=== PATIENT | female | born 1960 | race Caucasian/White ===

== ENCOUNTER 2018-04-05 21:36 | Emergency (ER) | payer MEDICAID ==
[~2018-04-05] VITALS: Ht 177.8 cm; Wt 81.6 kg
[2018-04-06 02:04] VITALS: BP 145/98
[2018-04-06] MEDS ORDERED: SODIUM CHLORIDE 0.9% 1,000 ML IVB ONE (02:32)
[2018-04-06] MEDS ORDERED: MORPHINE SULFATE 4 MG/ML SYR/VIAL IV ONE (02:45)
[2018-04-06] MEDS ORDERED: ONDANSETRON HCL 4 MG/2 ML VIAL IV ONE (02:45)
[2018-04-06] MEDS ORDERED: ONDANSETRON HCL 4 MG/2 ML VIAL IM ONE (02:45)
[2018-04-06] MEDS ORDERED: MORPHINE SULFATE 4 MG/ML SYR/VIAL IM ONE (02:45)
[2018-04-06] MEDS ORDERED: cefTRIAXone 1GM/50ML D5W 50 ML IV ONE (02:45)
[2018-04-06] MEDS ORDERED: cefTRIAXone W LIDOCAINE 1 GM IM IM ONE (02:45)
[2018-04-06] MEDS ORDERED: cefTRIAXone SOD 1,000 MG VL ONE (02:57)
== END 2018-04-06 03:34 | disposition home or self-care (01) ==
LOC: ER 21:36
DX: K02.9 Dental caries, unspecified (principal); J32.0 Chronic maxillary sinusitis; L03.211 Cellulitis of face
CPT/HCPCS: 70486; 96372; 99284; J0696; J2270; J2405

== ENCOUNTER 2018-08-01 13:09 | Emergency (ER) | payer MEDICAID ==
[~2018-08-01] VITALS: Ht 177.8 cm; Wt 89.8 kg
[2018-08-01 13:34] VITALS: BP 104/60
[2018-08-01] MEDS ORDERED: TETANUS-DIPTH-ACEL PERTUSSIS 0.5ML SYRG IM ONE (16:45)
[2018-08-01] MEDS ORDERED: KETOROLAC TROMETH 60MG/2ML VIAL IM ONE (17:00)
[2018-08-01] MEDS ORDERED: cefTRIAXone SOD 1,000 MG VL IM ONE (17:00)
== END 2018-08-01 18:33 | disposition home or self-care (01) ==
LOC: ER 13:09
DX: L03.114 Cellulitis of left upper limb (principal); S61.432D Puncture wound without foreign body of left hand, subsequent encounter
CPT/HCPCS: 73130; 90471; 90715; 96372; 99283; J0696; J1885

== ENCOUNTER 2019-04-18 17:43 | Emergency (ER) | payer MEDICAID ==
[~2019-04-18] VITALS: Ht 177.8 cm; Wt 81.6 kg
[2019-04-18 18:02] VITALS: BP 112/68
[2019-04-18 18:40] LABS: Urine Bacteria NONE SEEN /hpf (None Seen); Urine Blood Negative /uL (Negative); Urine Mucus FEW (None Seen); Urine Specific Gravity 1.022 (1.001-1.035); Urine WBC 2 /hpf (0 - 5)
== END 2019-04-18 22:10 | disposition left against medical advice (07) ==
LOC: ER 17:48
DX: M54.9 Dorsalgia, unspecified (principal); M54.2 Cervicalgia; Z53.21 Procedure and treatment not carried out due to patient leaving prior to being seen by health care provider
CPT/HCPCS: 81001

== ENCOUNTER 2022-11-16 08:37 | Inpatient (IN) | payer MEDICAID ==
[2022-11-16] VITALS (8 sets, daily range): BP systolic 98–139; BP diastolic 62–86
[~2022-11-16] VITALS: Ht 177.8 cm; Wt 94.8 kg
[~2022-11-16 08:37] MED LIST: METH-1181 PO
[2022-11-16] MEDS ORDERED: CELECOXIB 100 MG CAP PO ONE (08:45)
[2022-11-16] MEDS ORDERED: PREGABALIN CAPSULE 75 MG CAP PO ONE (08:45)
[2022-11-16] MEDS ORDERED: ACETAMINOPHEN IV 1000 MG/100ML (10MG/ML) IV ONE (08:45)
[2022-11-16] MEDS ORDERED: ceFAZolin 1GM/50ML 100 ML IV ONE (08:53)
[2022-11-16] MEDS ORDERED: TRANEXAMIC ACID 20 ML ONE (09:58)
[2022-11-16] MEDS ORDERED: BUPIVACAINE W/ EPINEPH 0.25% INJ 50ML MDV ONE (09:59)
[2022-11-16] MEDS ORDERED: VANCOMYCIN HCL 1000 MG VL ONE (09:59)
[2022-11-16] MEDS ORDERED: MORPHINE SULF PF 5 MG/10 ML VIAL ONE ×2 (10:40→10:57)
[2022-11-16] MEDS ORDERED: fentaNYL CITRATE 100 MCG/2 ML VL ONE (10:40)
[2022-11-16] MEDS ORDERED: MIDAZOLAM HCL 2MG/2ML 2ml VIAL (1mg/ml) ONE (10:41)
[2022-11-16] MEDS ORDERED: PROPOFOL 10 MG/ML 20 ML IV ONE (10:41)
[2022-11-16] MEDS ORDERED: TETRACAINE 1% INJ 2 ML VIAL IJ ONE (10:55)
[2022-11-16] MEDS ORDERED: KETOROLAC TROMETH 30 MG/ML 1ML VIAL ONE (10:57)
[2022-11-16] MEDS ORDERED: PHENYLEPHRINE HCL 10 MG/ML VL IV ONE (12:26)
[2022-11-16] MEDS ORDERED: DexAMETHasone SOD PHOS 10MG/1ML VIAL INJ IV ONE (12:26)
[2022-11-16] MEDS ORDERED: HYDROmorphone HCL 2 MG/ML VL/or syr IV PRN ×3 (14:00→15:15)
[2022-11-16] MEDS ORDERED: NALOXONE HCL 0.4 MG/ML VIAL IV PRN (14:00)
[2022-11-16] MEDS ORDERED: ONDANSETRON HCL 4 MG/2 ML VIAL IV PRN ×2 (14:00→14:15)
[2022-11-16] MEDS ORDERED: MIDAZOLAM HCL 2MG/2ML 2ml VIAL (1mg/ml) IV PRN (14:00)
[2022-11-16] MEDS ORDERED: ePHEDrine SULFATE 50 MG/ML AMP IV PRN (14:00)
[2022-11-16] MEDS ORDERED: diphenhdrAMINE HCL 50 MG/1 ML VL IV PRN (14:00)
[2022-11-16] MEDS ORDERED: LABETALOL HCL 5 MG/ML 4ML SYRINGE IV PRN (14:00)
[2022-11-16] MEDS ORDERED: ceFAZolin 1GM/50ML 50 ML IV SCH (14:15)
[2022-11-16] MEDS: LACTATED RINGER'S 1,000 ML IV SCH (14:15)
[2022-11-16] MEDS ORDERED: ONDANSETRON HCL 4 MG/2 ML VIAL ONE (16:20)
[2022-11-16] MEDS ORDERED: DICL5GEL TOP (16:22)
[2022-11-16] MEDS ORDERED: LIDO1.8P TOP (16:22)
[2022-11-16] MEDS ORDERED: DOCU-265 PO (16:22)
[2022-11-16] MEDS ORDERED: ACET650T4 PO (16:22)
[2022-11-16] MEDS ORDERED: ONDANSETRON HCL 4 MG/2 ML VIAL IV ONE (16:30)
[2022-11-16] MEDS: ceFAZolin 1GM/50ML 50 ML IV SCH ×2 (17:15→22:44)
[2022-11-16] MEDS ORDERED: PROMETHAZINE HCL 25 MG/ML 1ML IV ONE (19:00)
[2022-11-16] MEDS: DOCUSATE SOD 100 MG CAP PO SCH (22:21)
[2022-11-17] VITALS (23 sets, daily range): BP systolic 90–149; BP diastolic 37–74
[2022-11-17] MEDS: LACTATED RINGER'S 1,000 ML IV SCH ×3 (00:15→23:40)
[2022-11-17] MEDS: ceFAZolin 1GM/50ML 50 ML IV SCH (05:03)
[2022-11-17] MEDS: HYDROcodone-ACET 5/325MG TAB PO PRN (10:05)
[2022-11-17] MEDS: DOCUSATE SOD 100 MG CAP PO SCH ×2 (10:05→21:31)
[2022-11-17] MEDS: ENOXAPARIN SOD 40 MG/0.4 ML SYRINGE SC SCH (10:06)
[2022-11-17] MEDS ORDERED: LACTATED RINGER'S 250 ML IV ONE ×2 (12:00→12:30)
[2022-11-17] MEDS ORDERED: LACTATED RINGER'S 1,000 ML IV ONE ×2 (12:30→12:45)
[2022-11-17 13:20] LABS: Basophils # (auto) 0 10 ^3/uL (0-0.2); Basophils % (auto) 0.3 % (0.0-2.0); Eosinophils # (auto) 0 10 ^3/uL (0-0.8); Hemoglobin 9.9 g/dL (12.2-16.2); Lymphocytes # (auto) 0.2 10 ^3/uL (0.4-5.4); Lymphocytes % (auto) 6.8 % (10.0-50.0); Mean Corpuscular Hemoglobin 29.7 pg (28.0-32.0); Mean Corpuscular Hgb Conc. 34.3 g/dL (32.0-36.0); Mean Corpuscular Volume 86.5 fL (80.0-100.0); Monocytes # (auto) 0.1 10 ^3/uL (0-1.3); Monocytes % (auto) 2.6 % (0.0-12.0); Neutrophils # (auto) 3.3 10 ^3/uL (1.6-8.6); Neutrophils % (auto) 90.3 % (37.0-80.0); Nucleated Red Blood Cells % 0.2 %; Red Blood Cells 3.35 10^6/uL (4.0-5.20); Red Cell Distribution Width 13.9 % (11.8-14.3); White Blood Cell 3.7 10^3/uL (4.4-10.8)
[2022-11-17 13:37] LABS: Albumin 2.2 g/dL (3.4-5.0); Calcium 7.4 mg/dL (8.5-10.1); Potassium 3.9 mmol/L (3.5-5.1)
[2022-11-17 13:40] LABS: BUN/Creatinine Ratio 13.9 (10.0-20.0); Bilirubin, Total 0.3 mg/dL (0.2-1.0); Total Protein 4.5 g/dL (6.4-8.2)
[2022-11-17] MEDS ORDERED: ACETAMINOPHEN 325 MG TAB PO ONE (17:30)
[2022-11-18] MEDS: HYDROcodone-ACET 5/325MG TAB PO PRN ×3 (00:32→10:54)
[2022-11-18 05:20] VITALS: BP 124/66
[2022-11-18] MEDS: LACTATED RINGER'S 1,000 ML IV SCH (06:15)
[2022-11-18 06:19] LABS: Calcium 7.6 mg/dL (8.5-10.1); Potassium 3.8 mmol/L (3.5-5.1)
[2022-11-18 06:21] LABS: BUN/Creatinine Ratio 21.3 (10.0-20.0)
[2022-11-18 06:23] LABS: Bilirubin, Total 0.4 mg/dL (0.2-1.0); Total Protein 4.8 g/dL (6.4-8.2)
[2022-11-18 06:38] LABS: Hematocrit 30.3 % (36.0-46.0); Hemoglobin 10.9 g/dL (12.2-16.2); Mean Corpuscular Hemoglobin 31.1 pg (28.0-32.0); Mean Corpuscular Volume 86.5 fL (80.0-100.0); Red Blood Cells 3.51 10^6/uL (4.0-5.20); Red Cell Distribution Width 13.7 % (11.8-14.3)
[2022-11-18 07:05] LABS: Basophils % (manual) 0 (0.0-2.0); Blast Cells 0; Eosinophils % (manual) 0 (0-7); Metamyelocytes % 0; Myelocytes % 0; Promyelocytes % 0; Reactive Lymphocytes 0
[2022-11-18 08:55] LABS: Band Neutrophils % (manual) 4; Lymphocytes % (manual) 12 (10.0-50.0); Monocytes % (manual) 7 (0-12)
[2022-11-18 09:00] VITALS: BP 115/64
[2022-11-18] MEDS ORDERED: FERROUS SULFATE 325mg EC TAB PO ONE (10:15)
[2022-11-18] MEDS ORDERED: MULTIPLE VITAMIN TAB PO SCH (10:45)
[2022-11-18] MEDS: ENOXAPARIN SOD 40 MG/0.4 ML SYRINGE SC SCH (10:54)
[2022-11-18] MEDS: DOCUSATE SOD 100 MG CAP PO SCH (10:55)
[2022-11-18 12:45] VITALS: BP 111/58
[2022-11-18] MEDS ORDERED: FERROUS SULFATE 325mg EC TAB PO SCH (18:00)
[2022-11-19] MEDS ORDERED: MULTIPLE VITAMIN TAB PO SCH (10:00)
== END 2022-11-18 14:00 | disposition home health service (06) | DRG 324 ==
LOC: SUR 08:37 → TELE 15:06 → TELE-WESTW 16:36
PROVIDERS: ADMIT Orthopaedic Surgery Adult Reconstructive Orthopaedic Surgery; ATTEND Internal Medicine
PROC: BQ11ZZZ Fluoroscopy of Left Hip (ICD-10-PCS; 2022-11-16)
PROC: 0SRB02Z Replacement of Left Hip Joint with Metal on Polyethylene Synthetic Substitute, Open Approach (ICD-10-PCS; principal; 2022-11-16 11:27)
DX: M16.12 Unilateral primary osteoarthritis, left hip (principal); E66.9 Obesity, unspecified; Z72.0 Tobacco use; Z68.30 Body mass index [BMI] 30.0-30.9, adult
CPT/HCPCS: 36415; 72170; 73501; 76000; 80053; 85007; 85014; 85018; 85025; 85027; 86850; 86900; 86901; 97110; 97116; 97163; 97530; G0378; J0131; J0690; J1100; J1885; J2250; J2405; J2704

== ENCOUNTER 2023-02-25 21:09 | Emergency (ER) | payer MEDICAID ==
[~2023-02-25] VITALS: Ht 177.8 cm; Wt 80.0 kg
[~2023-02-25 21:09] MED LIST changes: +ACET650T4 PO; +DICL5GEL TOP; +DOCU-265 PO; +LIDO1.8P TOP; -METH-1181 PO
[2023-02-25 21:40] VITALS: PULSE 82; RESP 16; O2SAT 92
[2023-02-25] MEDS ORDERED: MORPHINE SULFATE INJ 2 MG/ml SYRG IV ONE (22:00)
[2023-02-25] MEDS ORDERED: ONDANSETRON HCL 4 MG/2 ML VIAL IV ONE (22:00)
[2023-02-25 22:12] LABS: Basophils # (auto) 0.1 10 ^3/uL (0-0.2); Basophils % (auto) 0.5 % (0.0-2.0); Eosinophils # (auto) 0.1 10 ^3/uL (0-0.8); Eosinophils % (auto) 0.6 % (0.0-7.0); Hematocrit 36.7 % (36.0-46.0); Lymphocytes # (auto) 2.1 10 ^3/uL (0.4-5.4); Lymphocytes % (auto) 14.3 % (10.0-50.0); Mean Corpuscular Hemoglobin 26.5 pg (28.0-32.0); Mean Corpuscular Hgb Conc. 32.6 g/dL (32.0-36.0); Mean Corpuscular Volume 81.4 fL (80.0-100.0); Monocytes % (auto) 6.7 % (0.0-12.0); Neutrophils # (auto) 11.6 10 ^3/uL (1.6-8.6); Neutrophils % (auto) 77.9 % (37.0-80.0); Nucleated Red Blood Cells % 0.1 %; Red Blood Cells 4.51 10^6/uL (4.0-5.20); Red Cell Distribution Width 15.1 % (11.8-14.3); White Blood Cell 14.9 10^3/uL (4.4-10.8)
[2023-02-25 22:25] LABS: Alanine Aminotransferase 20 U/L (7-40); Alkaline Phosphatase 131 U/L (46-116); Anion Gap 6 (5-15); Aspartate Aminotransferase 29 U/L (13-40); BUN/Creatinine Ratio 17.9 (10.0-20.0); Blood Urea Nitrogen 20 mg/dL (9-23); Calcium 8.8 mg/dL (8.7-10.4); Carbon Dioxide 26 mmol/L (20-30); Chloride 105 mmol/L (98-107); Glucose 142 mg/dL (74-106); Potassium 3.7 mmol/L (3.5-5.1); Sodium 137 mmol/L (136-145)
[2023-02-25 22:26] LABS: Bilirubin, Total 0.2 mg/dL (0.2-1.0); Total Protein 6.8 g/dL (5.7-8.2)
[2023-02-25 22:30] LABS: INR 1.06 (0.9-1.15); Partial Thromboplastin Time 24.5 SEC (24.5-34.5); Prothrombin Time 11.1 sec (9.3-11.8)
[2023-02-25] MEDS ORDERED: SODIUM CHLORIDE 0.9% 1,000 ML IV ONE (22:35)
[2023-02-25 23:59] VITALS: BP 142/90; PULSE 76; RESP 16; TEMP 98.7; O2SAT 100
== END 2023-02-26 00:12 | disposition short-term general hospital (02) ==
LOC: ER 21:09 → EDBD 21:09 → ER 02-26 00:12
DX: S22.42XA Multiple fractures of ribs, left side, initial encounter for closed fracture (principal); S42.002A Fracture of unspecified part of left clavicle, initial encounter for closed fracture; S42.102A Fracture of unspecified part of scapula, left shoulder, initial encounter for closed fracture; S36.899A Unspecified injury of other intra-abdominal organs, initial encounter; S36.00XA Unspecified injury of spleen, initial encounter; T79.4XXA Traumatic shock, initial encounter; J93.9 Pneumothorax, unspecified; Z79.899 Other long term (current) drug therapy; V23.49XA Other motorcycle driver injured in collision with car, pick-up truck or van in traffic accident, initial encounter; Y93.89 Activity, other specified; Y92.410 Unspecified street and highway as the place of occurrence of the external cause; Y99.8 Other external cause status
CPT/HCPCS: 36415; 36430; 70450; 71250; 72125; 73030; 73630; 74176; 80053; 84484; 85025; 85610; 85730; 86850; 86900; 86901; 86920; 96361; 96374; 96375; 99291; 99292; J2270; J2405; J7030; P9016

== ENCOUNTER 2024-10-19 13:54 | Inpatient (IN) | payer MEDICAID ==
[~2024-10-19] VITALS: Ht 160 cm; Wt 92.0 kg
[2024-10-19] MEDS: HYDROcodone-ACET 10/325MG TAB PO ONE (15:17)
--- NOTE | 2024-10-19 15:36 | ED.PDOC ---
Musculoskeletal HPI Comments A 64 YEAR OLD FEMALE PRESENTS TO THE ED WITH COMPLAINT OF LEFT-HIP PAIN, THAT RADIATES TO HER LEFT LEG FOR 8 MONTHS. PATIENT REPORTS ON PAIN WORSENING WITHIN THE PAST 4 MONTHS. WENT TO GO SEE OUTPATIENT ORTHOPEDIC AND WAS RECOMMENDED TO COME TO THE ED FOR FURTHER EVALUATION. SHE STATES ON NO LONGER BEING ABLE TO TOLERATE PAIN, DUE TO IT WORSENING WITHIN THE PAST 2 WEEKS, AND IS UNABLE TO AMBULATE ON HER OWN WEIGHT. STATES ON HAVING LEFT HIP REPLACEMENT 8 MONTHS AGO AND CONSULTING WITH OUTPATIENT SURGERY AND SPORTS MEDICINE REGARDING PAIN WITHOUT REGARD. PATIENT DENIES FEVER, CHILLS, SHORTNESS OF BREATH, CHEST PAIN, ABDOMINAL PAIN, NAUSEA, VOMITING, HEADACHE, OR OTHER COMPLAINTS. NO OTHER SYMPTO MS OR MODIFYING FACTORS AT THIS TIME. PATIENT IS ALERT, ORIENTED X 4, AND HAS STEADY GAIT. Chief Complaint: Lower Extremity Time Seen by MD: 14:01 Primary Care Provider: [facility] Reviewed Notes: Nurses Notes, Medications, Allergies Allergies: Coded Allergies: NO KNOWN ALLERGIES (Unverified , 04/05/18) Home Meds Reported Medications Methocarbamol (Methocarbamol) 500 Mg Tab, 1 TAB PO TID 10/19/24 Gabapentin (Gabapentin) 600 Mg Tab, 1 TAB PO TID 10/19/24 Diclofenac Sodium (Actinic Ker (Diclofenac Sodium) 3 % Gel, TOP 11/16/22 Acetaminophen (APAP ARTHRITIS) 650 Mg Tab, 1 TAB PO TID PRN for pain 11/16/22 Lidocaine (Ztlido) 1.8 % Pad, 1 PATCH TOP DAILY 11/16/22 Docusate Sodium (Docusate Sodium) 100 Mg Cap, 1 CAP PO BID 11/16/22 Information Source: Patient Mode of Arrival: Wheelchair Location: Left Extremity Location: Hip Timing: Months Prehospital treatment: None Severity: Moderate Able to Move Extremity: No Bear Weight: Fully Pain: Moderate Hand Dominance: Right Mechanism: Other (S/P HIP REPLACEMENT ) Circumstances: Other (POST SURGERY 8 MONTHS AGO. ) Onset of Symptoms: Spontaneous Symptoms: Pain DVT Risk Factors: Recent surgery Last Tetanus: Unknown History of: Hip Operation Associated signs and symptoms: Other (SEE HPI) Past Medical History PAST MEDICAL HISTORY: Denies Surgical History: Denies all surgeries Surgical History (Other): LEFT HIP ORTHROPLASTY OPTIC FIBRE DRAWER History: No Pertinent OPTIC FIBRE DRAWER History Family History Family History: Unknown Social History Smoker: Non-Smoker Alcohol: Denies ETOH Use Drugs: Denies Drug Use Lives In: Home Constitutional: denies: chills, diaphoresis, fatigue, fever, malaise, sweats, weakness, others EENTM: denies: blurred vision, double vision, ear bleeding, ear discharge, ear drainage, ear pain, ear ringing, eye pain, eye redness, hearing loss, mouth pain, mouth swelling, nasal discharge, nose bleeding, nose congestion, nose pain, photophobia, tearing, throat pain, throat swelling, voice changes, others Respiratory: denies: cough, hemoptysis, orthopnea, SOB at rest, shortness of breath, SOB with excertion, stridor, wheezing, others Cardiovascular: denies: chest pain, dizzy spells, diaphoresis, Dyspnea on exertion, edema, irregular heart beat, left arm pain, lightheadedness, palpitat ions, PND, syncope, others Gastrointestinal: denies: abdomen distended, abdominal pain, blood streaked bow els, constipated, diarrhea, dysphagia, difficulty swallowing, hematemesis, melena, nausea, poor appetite, poor fluid intake, rectal bleeding, rectal pain, vomiting, others Genitourinary: denies: abnormal vagina bleeding, burning, dyspareunia, dysuria, flank pain, frequency, hematuria, incontinence, pain, , vagina discharge, urgency, others Neurological: denies: dizziness, fainting, headache, left sided numbness, left sided weakness, numbness, paresthesia, pre-existing deficit, right sided numbness, right sided weakness, seizure, speech problems, tingling, tremors, weakness, others Musculoskeletal: reports: joint pain, muscle pain, others (LEFT HIP AND LEG PAIN ); denies: back pain, gout, joint swelling, muscle stiffness, neck pain Integumetry: denies: bruises, change in color, change in hair/nails, dryness, laceration, lesions, lumps, rash, wounds, others Allergic/Immunocompromised: denies: Difficulty Healing, Frequent Infections, Hives, Itching, others Hematologic/Lymphatic: denies: anemia, blood clots, easy bleeding, easy bruising, swollen glands, others Endocrine: denies: excessive hunger, excessive sweating, excessive thirst, excessive urination, flushing, intolerance to cold, intolerance to heat, unexplained weight gain, unexplained weight loss, others Psychiatric: denies: anxiety, bipolar disorder, depression, hopeless, panic disorder, schizophrenia, sleepless, suicidal, others All Other Systems: Reviewed and Negative Physical Exam General Appearance: Moderate Distress, Normal HEENT: Normal ENT Inspection, PERRL/EOMI, Pharynx Normal, TMs Normal Neck: Full Range of Motion, Non-Tender, Normal, Normal Inspection Respiratory: Chest Non-Tender, Lungs Clear, No Accessory Muscle Use, No Respiratory Distress, Normal Breath Sounds Cardiovascular: No Edema, No JVD, No Murmur, No Gallop, Normal Peripheral Pulses, Regular Rate/Rhythm Breast Exam: Deferred Gastrointestinal: No Organomegaly, Non Tender, No Pulsatile Mass, Normal Bowel Sounds, Soft Genitalia: Deferred Pelvic: Deferred Rectal: Deferred Extremities: Decreased range of motion, No calf tenderness, Normal capillary refill, No pedal edema, Tender (LEFT HIP, NPO BONY TENDERNESS, SWELLING AND DEFORMITY. ), Other (PT REFUSED TO REMOVE CLOTHING TO EVALUATE FOR EDEMA OR ERYTHEMA OF LEFT LOW EXTREMITY TO R/O DVT. ) Musculoskeletal : Apperance: Normal Neurologic: Alert, floor surfacer II-XII nml as Tested, No Motor Deficits, Normal Affect, Normal Mood, No Sensory Deficits Cerebellar Function: Normal Reflexes: Normal Skin: Dry, Normal Color, Warm Peripheral Pulses: 2+ carotid (R), 2+ carotid (L), 2+ dorsalis pedis (R), 2+ dorsalis pedis (L) Lymphatic: No Adenopathy Was a procedure done? Was a procedure done?: No Differential Diagnosis EXT Differential Diagnosis: Fracture, Sprain, Dislocation, Contusion, Strain, Other (INTRACTABLE LEFT HIP PAIN ) X-Ray, Labs, Meds, VS Vital Signs Date Time Temp Pulse Resp B/P (MAP) Pulse Ox O2 Delivery O2 Flow Rate FiO2 10/19/24 14:51 98.7 94 16 105/61 (76) 97 98.7 10/19/24 14:51 96 16 96 Room Air 10/19/24 14:00 98.3 93 18 93/54 (67) 97 98.3 Lab Test 10/19/24 15:24 Range/Units White Blood Count 7.8 4.4-10.8 10^3/uL Red Blood Count 4.65 4.0-5.20 10^6/uL Hemoglobin 12.9 12.2-16.2 g/dL Hematocrit 38.8 36.0-46.0 % Mean Corpuscular Volume 83.4 80.0-100.0 fL Mean Corpuscular Hemoglobin 27.8 L 28.0-32.0 pg Mean Corpuscular Hemoglobin Concent 33.4 32.0-36.0 g/dL Red Cell Distribution Width 14.8 H 11.8-14.3 % Platelet Count 377 140-450 10^3/uL Mean Platelet Volume 7.2 6.9-10.8 fL Neutrophils (%) (Auto) 66.7 37.0-80.0 % Lymphocytes (%) (Auto) 19.6 10.0-50.0 % Monocytes (%) (Auto) 10.9 0.0-12.0 % Eosinophils (%) (Auto) 1.7 0.0-7.0 % Basophils (%) (Auto) 1.1 0.0-2.0 % Neutrophils # (Auto) 5.2 1.6-8.6 10 ^3/uL Lymphocytes # (Auto) 1.5 0.4-5.4 10 ^3/uL Monocytes # (Auto) 0.8 0-1.3 10 ^3/uL Eosinophils # (Auto) 0.1 0-0.8 10 ^3/uL Basophils # (Auto) 0.1 0-0.2 10 ^3/uL Nucleated Red Blood Cells 0.0 % Prothrombin Time 10.8 9.3-11.8 sec Prothrombin Time INR 1.02 0.9-1.15 Sodium Level 137 136-145 mmol/L Potassium Level 4.3 3.5-5.1 mmol/L Chloride Level 103 98-107 mmol/L Carbon Dioxide Level 29 20-31 mmol/L Anion Gap 5 5-15 Blood Urea Nitrogen 19 9-23 mg/dL Creatinine 0.90 0.550-1.02 mg/dL Glomerular Filtration Rate Calc 72 >90 mL/min BUN/Creatinine Ratio 21.1 H 10.0-20.0 Serum Glucose 102 74-106 mg/dL Calcium Level 10.1 8.7-10.4 mg/dL Current Medications Medications (Trade) Dose Ordered Sig/Maddi Route Start Time Stop Time Status Last Admin Acetaminophen/ Hydrocodone Bitart ([place] 10/325MG Tab) 1 tab ONCE ONCE PO 10/19/24 15:15 10/19/24 15:16 DC 10/19/24 15:17 PATIENT: JOY EDMONDSCT: [id number]: [id number] : 1960 LOC: ER ROOM / BED: / AGE / SEX: 64 / F ADM STATUS: REG ER SERVICE 1411 ORDERING PHYSICIAN: SELVIN LEA PROCEDURE(s): LHIP - L HIP COMPLETE XRAY REASON: PAIN, NO INJURY ORDER NUMBER(s): [id number], ACCESSION NUMBER(s): [id number] EXAM: XY L HIP COMPLETE XRAY INDICATION: PAIN, NO INJURY TECHNIQUE: 3 views of the left hip COMPARISON: None FINDINGS/IMPRESSION: No radiographic evidence of an acute osseous abnormality. There is no acute fracture, osseous malalignment, or aggressive focal osseous lesion. Left total hip arthroplasty. ATED BY: PEÑA CLAY MD DICTATED DATE/TIME: 10/19/24 144 SIGNED BY: PEÑA CLAY MD SIGNED DATE/TIME: 10/19/24 144 CC: X-Ray, Labs, Meds, VS Comment EXTERNAL MEDICAL RECORDS REVIEWED: [NONE] INDEPENDENT HISTORIANS: [NONE] SOCIAL DETERMINANTS OF HEALTH: [NONE] LABS ORDERED: TYPE AND SCREEN, PROTHROMBIN TIME W/REFLEX, UA, BMP, CBC REVIEWED AND INTERPRETED RESULTS: NONE IMAGING ORDERED: LEFT HIP XRAY TREATMENTS ORDERED: HYDROCODONE, HEPLOCK IV 0.9 NS 120ML/HOUR. PROCEDURES PERFORMED: NONE CRITICAL CARE TIME: NON MDM; DUE TO PATIENT'S INTRACTABLE PAIN AND UNABLE TO WALK. PATIENTS NEEDS TO BE ADMITTED FOR FURTHER WORKUP AND EVALUATION IN ADDITION TO PATIENT DEMANDING TO BE ADMITTED. Time of 1ST Reevaluation: 15:30 Reevaluation 1ST: Unchanged Patient Education/Counseling: Diagnosis, Treatment Family Education/Counseling: Diagnosis, Treatment Departure 1 Departure Time of Disposition: 15:31 Impression: Primary Impression: Intractable pain Additional Impression: Left hip pain Disposition: ADMITTED INPATIENT Admit to: Med Surg Condition: Serious Critical Care Note Critical Care Time?: No Stability Stability form required: Yes Unstable for transfer: Requires medication, ED Physician Assesment, Possible rapid decline Heart Score Heart Score: Heart Score Response (Comments) Value History N/A 0 EKG N/A 0 Age N/A 0 Risk Factors N/A 0 Troponin N/A 0 Total 0 I personally scribed for SELVIN LEA ([email or web address]) on 10/19/24 at 15:36. Electronically submitted by Jose Carlos Fonseca ([email or web address]). SELVIN LEA October 19, 2024 15:36
[2024-10-19 15:38] LABS: Basophils # (auto) 0.1 10 ^3/uL (0-0.2); Basophils % (auto) 1.1 % (0.0-2.0); Eosinophils # (auto) 0.1 10 ^3/uL (0-0.8); Eosinophils % (auto) 1.7 % (0.0-7.0); Hematocrit 38.8 % (36.0-46.0); Hemoglobin 12.9 g/dL (12.2-16.2); Lymphocytes # (auto) 1.5 10 ^3/uL (0.4-5.4); Lymphocytes % (auto) 19.6 % (10.0-50.0); Mean Corpuscular Hemoglobin 27.8 pg (28.0-32.0); Mean Corpuscular Hgb Conc. 33.4 g/dL (32.0-36.0); Mean Corpuscular Volume 83.4 fL (80.0-100.0); Monocytes # (auto) 0.8 10 ^3/uL (0-1.3); Monocytes % (auto) 10.9 % (0.0-12.0); Neutrophils # (auto) 5.2 10 ^3/uL (1.6-8.6); Neutrophils % (auto) 66.7 % (37.0-80.0); Platelet Count (auto) 377 10^3/uL (140-450); Red Blood Cells 4.65 10^6/uL (4.0-5.20); Red Cell Distribution Width 14.8 % (11.8-14.3); White Blood Cell 7.8 10^3/uL (4.4-10.8)
[2024-10-19 15:48] LABS: Chloride 103 mmol/L (98-107); Potassium 4.3 mmol/L (3.5-5.1); Sodium 137 mmol/L (136-145)
[2024-10-19 15:49] LABS: Anion Gap 5 (5-15); Carbon Dioxide 29 mmol/L (20-31)
[2024-10-19 15:50] LABS: Calcium 10.1 mg/dL (8.7-10.4)
[2024-10-19 15:54] LABS: BUN/Creatinine Ratio 21.1 (10.0-20.0); Blood Urea Nitrogen 19 mg/dL (9-23); Glucose 102 mg/dL (74-106); INR 1.02 (0.9-1.15); Prothrombin Time 10.8 sec (9.3-11.8)
[2024-10-19] MEDS ORDERED: ACETAMINOPHEN 325 MG TAB PO PRN (16:45)
[2024-10-19] MEDS ORDERED: ONDANSETRON HCL 4 MG/2 ML VIAL IV PRN (16:45)
[2024-10-19] MEDS ORDERED: GABA-339 PO (16:50)
[2024-10-19] MEDS ORDERED: METH-1181 PO (16:50)
--- NOTE | 2024-10-19 17:01 | DVHHP2 ---
History of Present Illness Reason for Visit: Left hip pain History of Present Illness Sydnie Chapman is a 64-year-old female with past medical history of degenerative joint disease of the hip and left total hip arthroplasty who presents to the ED with left hip pain times 3-4 months. Patient reports that it has progressively gotten worse over the last 3 weeks and she has not been able to walk get up to toilet herself or move around. She reports that with any shift or movement her pain is excruciating and 10/10 constant pain. Patient is currently on wound wheelchair and that the chair side is a friend Jem. Patient denies any recent trauma or injury, recent travels, recent sick contacts, chest pain, shortness of breath, fever, chills, abdominal pain, nausea, vomiting, or diarrhea. Patient reports that she went and got an MRI at [facility] couple of weeks ago and was given results that she would have to come back in and get another left hip replacement. Patient reports that she has a disc at home. She reports that her surgeon did the procedure here at [facility]. Past Medical History Degenerative joint disease of the hip Past Surgical History: Other (Left total hip arthroplasty) Family History: None Smoke: <1 pack per day ALCOHOL: occassional Drugs: Marijuana Lives: with Family Domestic Violence: Neg Review of Systems Musculoskeletal: other (Left hip pain) Allergies: Coded Allergies: NO KNOWN ALLERGIES (Unverified , 04/05/18) Medications Current Medications Medications Dose Ordered Sig/Maddi Route Start Time Stop Time Status Last Admin Dose Admin Acetaminophen/ Hydrocodone Bitart 1 tab Q4HP PRN PO 10/19/24 16:45 UNV Ondansetron HCl 4 mg Q4HP PRN IV 10/19/24 16:45 UNV Acetaminophen 650 mg Q6HP PRN PO 10/19/24 16:45 UNV Morphine Sulfate 2 mg Q4HPRN PRN IV 10/19/24 16:45 UNV Enoxaparin Sodium 40 mg DAILY SC 10/20/24 10:00 UNV Exam Vital Signs Vital Signs Date Time Temp Pulse Resp B/P (MAP) Pulse Ox O2 Delivery O2 Flow Rate FiO2 10/19/24 14:51 98.7 94 16 105/61 (76) 97 98.7 10/19/24 14:51 Room Air General Appearance: Alert, Oriented X3, Cooperative, No acute distress HEENT: Atraumatic, PERRLA, EOMI, Mucous membr. moist/pink Respiratory: Clear to auscultation, Normal air movement Cardiovascular: Regular rate, Normal S1, Normal S2, No murmurs Abdominal: Soft Extremities: Normal pulses Neuro: Normal speech, Normal tone, Sensation intact Psych/Mental Status: Mental status NL, Mood NL Labs/Xrays Labs Test 10/19/24 15:24 Range/Units White Blood Count 7.8 4.4-10.8 10^3/uL Red Blood Count 4.65 4.0-5.20 10^6/uL Hemoglobin 12.9 12.2-16.2 g/dL Hematocrit 38.8 36.0-46.0 % Mean Corpuscular Volume 83.4 80.0-100.0 fL Mean Corpuscular Hemoglobin 27.8 L 28.0-32.0 pg Mean Corpuscular Hemoglobin Concent 33.4 32.0-36.0 g/dL Red Cell Distribution Width 14.8 H 11.8-14.3 % Platelet Count 377 140-450 10^3/uL Mean Platelet Volume 7.2 6.9-10.8 fL Neutrophils (%) (Auto) 66.7 37.0-80.0 % Lymphocytes (%) (Auto) 19.6 10.0-50.0 % Monocytes (%) (Auto) 10.9 0.0-12.0 % Eosinophils (%) (Auto) 1.7 0.0-7.0 % Basophils (%) (Auto) 1.1 0.0-2.0 % Neutrophils # (Auto) 5.2 1.6-8.6 10 ^3/uL Lymphocytes # (Auto) 1.5 0.4-5.4 10 ^3/uL Monocytes # (Auto) 0.8 0-1.3 10 ^3/uL Eosinophils # (Auto) 0.1 0-0.8 10 ^3/uL Basophils # (Auto) 0.1 0-0.2 10 ^3/uL Nucleated Red Blood Cells 0.0 % Prothrombin Time 10.8 9.3-11.8 sec Prothrombin Time INR 1.02 0.9-1.15 Sodium Level 137 136-145 mmol/L Potassium Level 4.3 3.5-5.1 mmol/L Chloride Level 103 98-107 mmol/L Carbon Dioxide Level 29 20-31 mmol/L Anion Gap 5 5-15 Blood Urea Nitrogen 19 9-23 mg/dL Creatinine 0.90 0.550-1.02 mg/dL Glomerular Filtration Rate Calc 72 >90 mL/min BUN/Creatinine Ratio 21.1 H 10.0-20.0 Serum Glucose 102 74-106 mg/dL Calcium Level 10.1 8.7-10.4 mg/dL EXAM: XY L HIP COMPLETE XRAY INDICATION: PAIN, NO INJURY TECHNIQUE: 3 views of the left hip COMPARISON: None FINDINGS/IMPRESSION: No radiographic evidence of an acute osseous abnormality. There is no acute fracture, osseous malalignment, or aggressive focal osseous lesion. Left total hip arthroplasty. Assessment/Plan Assessment/Plan Assessment Left hip pain status post total left hip arthroplasty Tobacco use Alcohol use Substance use Plan Admit to med surge Antiemetics Pain management Type and screen PT/INR UA Left hip x-ray Diet Home medications reconciled DVT prophylaxis-Lovenox PUD prophylaxis-not indicated no history of GERD or GI bleed Discussed plan of care with patient and nurse Counseled patient on cessation of tobacco use Counseled patient on cessation of alcohol use Counseled patient on substance use Plan discussed with: Patient My Orders Orders - AMANDA POTTS NIB INSPECTOR Procedure Category Date Status Time Urinalysis LAB 10/19/24 Logged 16:31 Admit ADMIT 10/19/24 Transmitted 16:31 Code Status CODE 10/19/24 Transmitted 16:31 Hydrocodone-Acet PHA 10/19/24 Logged 5/325mg Tab ([place] 16:45 Ondansetron Hcl PHA 10/19/24 Logged (Zofran) 16:45 Complete Blood Count LAB 10/20/24 Verified 04:00 Comprehensive LAB 10/20/24 Verified Metabolic Panel 04:00 Cardiac DIET 10/19/24 Transmitted Diet-2gna,Lofat,Lochol Dinner Acetaminophen Tablet PHA 10/19/24 Logged (Tylenol Tablet) 16:45 Morphine Sulfate PHA 10/19/24 Logged Injection 16:45 Enoxaparin Sodium PHA 10/20/24 Logged (Lovenox) 10:00 Methocarbamol PHA 10/19/24 Logged (Robaxin) 22:00 (Nf) Gabapentin PHA 10/19/24 Logged 22:00 (Nf) Lidocaine PHA 10/20/24 Logged (Ztlido) 10:00 Date of Service: October 19, 2024 Billing Provider: AMANDA POTTS Common Visit Codes: [id number] INP/OBS CARE (HIGH) AMANDA POTTS October 19, 2024 17:01
[2024-10-19] MEDS ORDERED: MORPHINE SULFATE 4 MG/ML SYR/VIAL IV PRN (18:00)
[2024-10-19] MEDS: ONDANSETRON HCL 4 MG/2 ML VIAL IV PRN (18:06)
[2024-10-19] MEDS: MORPHINE SULFATE 4 MG/ML SYR/VIAL IV ONE (18:22)
[2024-10-19 18:40] LABS: Urine Bacteria FEW /hpf (None Seen); Urine Blood Negative /uL (Negative); Urine Clarity Clear (Clear); Urine Color Colorless (Yellow); Urine Protein, UAD Negative (Negative); Urine Specific Gravity 1.005 (1.001-1.035); Urine Squamous Epithelial Cell FEW /hpf (<5); Urine Urobilinogen Normal (Negative); Urine WBC 4 /HPF (0-5); Urine pH 6.5 (5.0-9.0)
[2024-10-19 19:30] VITALS: PULSE 88; RESP 12; O2SAT 98
[2024-10-19] MEDS: HYDROcodone-ACET 5/325MG TAB PO PRN (20:17)
[2024-10-19] MEDS: MORPHINE SULFATE INJ 2 MG/ml SYRG IV PRN (21:54)
[2024-10-19] MEDS: METHOCARBAMOL 500 MG TAB PO SCH (22:34)
[2024-10-19] MEDS: GABAPENTIN 300 MG CAP PO SCH (22:34)
[2024-10-19 23:15] VITALS: BP 117/79; PULSE 102; RESP 19; TEMP 102; TEMP 98.6; O2SAT 94
[2024-10-20] VITALS (8 sets, daily range): BP systolic 100–164; BP diastolic 47–77; PULSE 75–96; RESP 16–19; TEMP 97.8–98.7; O2SAT 93–96
[2024-10-20 07:25] LABS: Basophils # (auto) 0.1 10 ^3/uL (0-0.2); Basophils % (auto) 0.7 % (0.0-2.0); Eosinophils # (auto) 0.2 10 ^3/uL (0-0.8); Eosinophils % (auto) 2.5 % (0.0-7.0); Hematocrit 35.9 % (36.0-46.0); Hemoglobin 12.1 g/dL (12.2-16.2); Lymphocytes # (auto) 1.9 10 ^3/uL (0.4-5.4); Lymphocytes % (auto) 27.5 % (10.0-50.0); Mean Corpuscular Hemoglobin 28.3 pg (28.0-32.0); Mean Corpuscular Hgb Conc. 33.6 g/dL (32.0-36.0); Mean Corpuscular Volume 84.2 fL (80.0-100.0); Monocytes # (auto) 0.9 10 ^3/uL (0-1.3); Monocytes % (auto) 12.6 % (0.0-12.0); Neutrophils % (auto) 56.7 % (37.0-80.0); Nucleated Red Blood Cells % 0.1 %; Platelet Count (auto) 362 10^3/uL (140-450); Red Blood Cells 4.27 10^6/uL (4.0-5.20); Red Cell Distribution Width 14.6 % (11.8-14.3)
[2024-10-20 07:40] LABS: Alanine Aminotransferase 39 U/L (7-40); Anion Gap 5 (5-15); Aspartate Aminotransferase 39 U/L (13-40); BUN/Creatinine Ratio 23.3 (10.0-20.0); Blood Urea Nitrogen 21 mg/dL (9-23); Calcium 9.5 mg/dL (8.7-10.4); Carbon Dioxide 31 mmol/L (20-31); Chloride 102 mmol/L (98-107); Glucose 102 mg/dL (74-106); Sodium 138 mmol/L (136-145); Total Protein 6.7 g/dL (5.7-8.2)
[2024-10-20 07:41] LABS: Albumin 3.8 g/dL (3.2-4.8); Bilirubin, Total 0.3 mg/dL (0.2-1.0)
[2024-10-20 07:45] LABS: Alkaline Phosphatase 146 U/L (46-116)
[2024-10-20] MEDS: LIDOCAINE 1.8% TOP SCH (10:00)
[2024-10-20] MEDS: ENOXAPARIN SOD 40 MG/0.4 ML SYRINGE SC SCH (10:25)
--- NOTE | 2024-10-20 12:46 | DVHPN2 ---
Reviewed: Care Plan, H&P, Labs, Medications, Previous Orders, Radiology Changes from previous H/P or p: No Changes Musculoskeletal: other (Left hip pain) Objective Vitals Vital Signs Date Time Temp Pulse Resp B/P (MAP) Pulse Ox O2 Delivery O2 Flow Rate FiO2 10/20/24 10:25 88 18 110/53 10/20/24 08:51 97.9 95 97.9 10/19/24 23:40 Room Air* 0 21 Intake/Output Intake and Output 10/20/24 07:00 Intake Total 200 ml Output Total 1500 ml Balance -1300 ml Intake Oral 200 ml Output Urine Total 1500 ml Medications Current Medications Medications Dose Ordered Sig/Maddi Route Start Time Stop Time Status Last Admin Dose Admin Acetaminophen/ Hydrocodone Bitart 1 tab Q4HP PRN PO 10/19/24 16:45 10/20/24 05:22 1 TAB Acetaminophen 650 mg Q6HP PRN PO 10/19/24 16:45 Morphine Sulfate 2 mg Q4HPRN PRN IV 10/19/24 16:45 10/20/24 10:25 2 MG Enoxaparin Sodium 40 mg DAILY SC 10/20/24 10:00 10/20/24 10:25 40 MG Methocarbamol 500 mg TID PO 10/19/24 22:00 10/20/24 05:23 500 MG Gabapentin 600 mg TID PO 10/19/24 22:00 10/20/24 05:24 600 MG Patient Own Medication 1 patch DAILY TOP 10/20/24 10:00 Ondansetron HCl 4 mg Q4HPRN PRN IV 10/19/24 18:00 10/19/24 18:06 4 MG Laboratory Results Laboratory Tests 10/20/24 06:08 Chemistry Test 10/19/24 15:24 10/20/24 06:08 Calcium Level 10.1 mg/dL (8.7-10.4) 9.5 mg/dL (8.7-10.4) Albumin 3.8 g/dL (3.2-4.8) Total Protein 6.7 g/dL (5.7-8.2) Coagulation Test 10/19/24 15:24 Prothrombin Time 10.8 sec (9.3-11.8) Prothrombin Time INR 1.02 (0.9-1.15) LFT Test 10/20/24 06:08 Alanine Aminotransferase (ALT) 39 U/L (7-40) Alkaline Phosphatase 146 U/L (46-116) H Aspartate Amino Transferase (AST) 39 U/L (13-40) Total Bilirubin 0.3 mg/dL (0.2-1.0) Urinalysis Test 10/19/24 17:50 Urine Color Colorless (Yellow) Urine Clarity Clear (Clear) Urine pH 6.5 (5.0-9.0) Urine Specific [place] 1.005 (1.001-1.035) Urine Protein Negative (Negative) Urine Ketones Negative (Negative) Urine Blood Negative /uL (Negative) Urine Nitrite 2+ (Negative) H Urine Bilirubin Negative (Negative) Urine Urobilinogen Normal mg/dL (Negative) Urine Leukocyte Esterase Trace /uL (Negative) Urine RBC 1 /hpf (0 - 4) Urine Microscopic WBC 4 /HPF (0-5) Urine Squamous Epithelial Cells Few /hpf (<5) Urine Bacteria Few /hpf (None Seen) H Urine Glucose Normal mg/dL (Normal) Labs and/or images reviewed: Labs reviewed by me, Image(s) reviewed by me Assessment/Plan Assessment/Plan Acute Left hip pain: Left hip x-ray negative, will order CT left hip [place] Robaxin gabapentin Status post left hip arthroplasty by Dr Yossi Peters at [facility] 12/13/2022 Severe DJD left hip Plan discussed with: Patient Date of Service: October 20, 2024 Billing Provider: BIGG SOLARES MD Common Visit Codes: [id number] INP/OBS CARE(HIGH) BIGG SOLARES MD October 20, 2024 12:46
--- NOTE | 2024-10-20 14:12 | DVH ---
Indication: Left hip pain with previous surgery Technique: CT axial images of the left hip are obtained without contrast. Coronal and sagittal reform ats were obtained. Radiation Dose Information: CTDI volume is 31.31 mGy. Dose-length product is 925.26 mGy*cm Comparison: None FINDINGS/IMPRESSION: There is left hip arthroplasty. The hip hardware demonstratesm perihardware lucency of up to 10 mm w hich can represent hardware loosening, infection. The prosthesis extends into the posterior left femo ral cortex and breaches the cortex distally (the intended intramedullary component is not located opal trally within the expected location of the femoral medullary space). Recommend orthopedic consultatio n for further evaluation and management. Moderate to severe degenerative disc disease at L5-S1. Gaytan catheter. Moderate to large volume stool in the imaged portion of the colon. Fecal like conten ts within the small bowel may represent ileus/hypomotility.
[2024-10-21] VITALS (7 sets, daily range): BP systolic 108–132; BP diastolic 59–81; PULSE 81–98; RESP 16–20; TEMP 98–98.6; O2SAT 95–99
--- NOTE | 2024-10-21 09:33 | DVHPN2 ---
Reviewed: Care Plan, H&P, Labs, Medications, Previous Orders, Radiology Changes from previous H/P or p: No Changes Musculoskeletal: other (Left hip pain) Objective Vitals Vital Signs Date Time Temp Pulse Resp B/P (MAP) Pulse Ox O2 Delivery O2 Flow Rate FiO2 10/21/24 05:00 98.1 98 17 132/81 (98) 96 98.1 10/20/24 20:00 Room Air* 0 21 Intake/Output Intake and Output 10/21/24 07:00 Intake Total 1800 ml Output Total 3100 ml Balance -1300 ml Intake Oral 1800 ml Output Urine Total 3100 ml Medications Current Medications Medications Dose Ordered Sig/Maddi Route Start Time Stop Time Status Last Admin Dose Admin Acetaminophen/ Hydrocodone Bitart 1 tab Q4HP PRN PO 10/19/24 16:45 10/21/24 05:35 1 TAB Acetaminophen 650 mg Q6HP PRN PO 10/19/24 16:45 Morphine Sulfate 2 mg Q4HPRN PRN IV 10/19/24 16:45 10/21/24 03:28 2 MG Enoxaparin Sodium 40 mg DAILY SC 10/20/24 10:00 10/20/24 10:25 40 MG Methocarbamol 500 mg TID PO 10/19/24 22:00 10/21/24 05:35 500 MG Gabapentin 600 mg TID PO 10/19/24 22:00 10/21/24 05:35 600 MG Patient Own Medication 1 patch DAILY TOP 10/20/24 10:00 Ondansetron HCl 4 mg Q4HPRN PRN IV 10/19/24 18:00 10/19/24 18:06 4 MG Laboratory Results Laboratory Tests 10/20/24 06:08 Urinalysis Test 10/19/24 17:50 Urine Color Colorless (Yellow) Urine Clarity Clear (Clear) Urine pH 6.5 (5.0-9.0) Urine Specific [place] 1.005 (1.001-1.035) Urine Protein Negative (Negative) Urine Ketones Negative (Negative) Urine Blood Negative /uL (Negative) Urine Nitrite 2+ (Negative) H Urine Bilirubin Negative (Negative) Urine Urobilinogen Normal mg/dL (Negative) Urine Leukocyte Esterase Trace /uL (Negative) Urine RBC 1 /hpf (0 - 4) Urine Microscopic WBC 4 /HPF (0-5) Urine Squamous Epithelial Cells Few /hpf (<5) Urine Bacteria Few /hpf (None Seen) H Urine Glucose Normal mg/dL (Normal) Labs and/or images reviewed: Labs reviewed by me, Image(s) reviewed by me Assessment/Plan Assessment/Plan Acute Left hip pain: Left hip x-ray negative, left hip CT shows possible loosening of the hardware [place] Robaxin gabapentin Status post left hip arthroplasty by Dr Yossi Peters at [facility] 12/13/2022 consult for Severe DJD left hip Plan discussed with: Patient My Orders Orders - BIGG SOLARES MD Procedure Category Date Status Time Ct L Hip With Out CT 10/20/24 Resulted Contrast 12:46 * Orthopedic Consult CONS 10/20/24 Transmitted 12:46 Date of Service: October 21, 2024 Billing Provider: BIGG SOLARES MD Common Visit Codes: [id number] INP/OBS CARE(HIGH) BIGG SOLARES MD October 21, 2024 09:33
[2024-10-21 14:21] LABS: Erythrocyte Sedimentation Rate 67 mm/hr (0-20)
[2024-10-22] VITALS (7 sets, daily range): BP systolic 116–121; BP diastolic 58–74; PULSE 82–92; RESP 12–20; TEMP 97.7–98.3; O2SAT 94–96
--- NOTE | 2024-10-22 10:53 | DVHPN2 ---
Reviewed: Care Plan, H&P, Labs, Medications, Previous Orders, Radiology Changes from previous H/P or p: No Changes Musculoskeletal: other (Left hip pain) Objective Vitals Vital Signs Date Time Temp Pulse Resp B/P (MAP) Pulse Ox O2 Delivery O2 Flow Rate FiO2 10/22/24 09:15 97.7 82 16 121/66 (84) 94 97.7 10/22/24 08:00 Room Air* 0 21 Intake/Output Intake and Output 10/22/24 07:00 Intake Total 780 ml Output Total 1950 ml Balance -1170 ml Intake Oral 780 ml Output Urine Total 1950 ml # Bowel Movements 1 Medications Current Medications Medications Dose Ordered Sig/Maddi Route Start Time Stop Time Status Last Admin Dose Admin Acetaminophen/ Hydrocodone Bitart 1 tab Q4HP PRN PO 10/19/24 16:45 10/22/24 05:37 1 TAB Acetaminophen 650 mg Q6HP PRN PO 10/19/24 16:45 Morphine Sulfate 2 mg Q4HPRN PRN IV 10/19/24 16:45 10/22/24 08:57 2 MG Enoxaparin Sodium 40 mg DAILY SC 10/20/24 10:00 10/22/24 08:54 40 MG Methocarbamol 500 mg TID PO 10/19/24 22:00 10/22/24 05:38 500 MG Gabapentin 600 mg TID PO 10/19/24 22:00 10/22/24 05:37 600 MG Patient Own Medication 1 patch DAILY TOP 10/20/24 10:00 Ondansetron HCl 4 mg Q4HPRN PRN IV 10/19/24 18:00 10/19/24 18:06 4 MG Laboratory Results Laboratory Tests 10/20/24 06:08 Urinalysis Test 10/19/24 17:50 Urine Color Colorless (Yellow) Urine Clarity Clear (Clear) Urine pH 6.5 (5.0-9.0) Urine Specific [place] 1.005 (1.001-1.035) Urine Protein Negative (Negative) Urine Ketones Negative (Negative) Urine Blood Negative /uL (Negative) Urine Nitrite 2+ (Negative) H Urine Bilirubin Negative (Negative) Urine Urobilinogen Normal mg/dL (Negative) Urine Leukocyte Esterase Trace /uL (Negative) Urine RBC 1 /hpf (0 - 4) Urine Microscopic WBC 4 /HPF (0-5) Urine Squamous Epithelial Cells Few /hpf (<5) Urine Bacteria Few /hpf (None Seen) H Urine Glucose Normal mg/dL (Normal) Labs and/or images reviewed: Labs reviewed by me, Image(s) reviewed by me Assessment/Plan Assessment/Plan Acute Left hip pain: Left hip x-ray negative, left hip CT shows possible loosening of the hardware [place] Robaxin gabapentin Status post left hip arthroplasty by Dr Yossi Peters at [facility] 12/13/2022 consult for treated, patient going for surgery on 10/23/2024 Severe DJD left hip Plan discussed with: Patient Date of Service: October 22, 2024 Billing Provider: BIGG SOLARES MD Common Visit Codes: [id number] INP/OBS CARE(HIGH) BIGG SOLARES MD October 22, 2024 10:53
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
[2024-10-23] VITALS (14 sets, daily range): BP systolic 94–138; BP diastolic 48–69; PULSE 62–114; RESP 15–20; TEMP 97.9–98.9; O2SAT 87–100
[2024-10-23] MEDS: ceFAZolin 2 GM/D5W50ml 50 ML IV ONE (09:54)
--- NOTE | 2024-10-23 10:06 | DVH ---
INDICATION: PRE-OP, pain TECHNIQUE: Frontal view of the chest. COMPARISON: None FINDINGS: . The heart and mediastinal contours are grossly unremarkable. There is no evidence of pleural disea se. The lungs are clear. The bony structures of the chest are intact without fracture. IMPRESSION: 1. No evidence of acute disease.
[2024-10-23] MEDS: cefTRIAXone SOD 1,000 MG VL ONE (10:09)
[2024-10-23] MEDS: cefTRIAXone 1GM/50ML D5W 50 ML IV ONE (10:15)
[2024-10-23] MEDS: TRANEXAMIC ACID 20 ML ONE (10:19)
[2024-10-23] MEDS: BUPIVACAINE W/ EPINEPH 0.5% MPF 30ML VIAL IJ ONE ×2 (10:19→11:43)
[2024-10-23] MEDS: ceFAZolin 1GM VL ONE (10:19)
[2024-10-23] MEDS ORDERED: MORPHINE SULF PF 5 MG/10 ML VIAL ONE ×2 (10:20→10:24)
[2024-10-23] MEDS: KETOROLAC TROMETH 30 MG/ML 1ML VIAL ONE (10:22)
[2024-10-23] MEDS: VANCOMYCIN HCL 1000 MG VL ONE (10:22)
[2024-10-23] MEDS ORDERED: fentaNYL CITRATE 100 MCG/2 ML VL ONE (10:23)
[2024-10-23] MEDS ORDERED: MIDAZOLAM HCL 2MG/2ML 2ml VIAL (1mg/ml) ONE (10:24)
[2024-10-23] MEDS ORDERED: ONDANSETRON HCL 4 MG/2 ML VIAL ONE (10:26)
[2024-10-23] MEDS ORDERED: PROPOFOL 10 MG/ML 20 ML IV ONE (10:26)
[2024-10-23] MEDS ORDERED: METOCLOPRAMIDE HCL 5MG/ml INJ 2ml VIAL ONE (10:26)
[2024-10-23] MEDS ORDERED: LIDOCAINE 2% (LOCAL ANESTH.) PF 5ml SDV ONE (10:26)
[2024-10-23] MEDS: CEFEPIME 1GM/ 50ML 50 ML IV ONE (10:30)
[2024-10-23] MEDS ORDERED: ePHEDrine SULFATE 50 MG/ML AMP ONE (11:25)
--- NOTE | 2024-10-23 13:32 | DVHPN2 ---
Reviewed: Care Plan, H&P, Labs, Medications, Previous Orders, Radiology Changes from previous H/P or p: No Changes Musculoskeletal: other (Left hip pain) Objective Vitals Vital Signs Date Time Temp Pulse Resp B/P (MAP) Pulse Ox O2 Delivery O2 Flow Rate FiO2 10/23/24 08:30 98.3 62 16 98/64 (75) 94 98.3 10/23/24 07:45 Room Air* 0 21 Intake/Output Intake and Output 10/23/24 07:00 Intake Total 1040 ml Output Total 3100 ml Balance -2060 ml Intake Oral 1040 ml Output Urine Total 3100 ml Medications Current Medications Medications Dose Ordered Sig/Maddi Route Start Time Stop Time Status Last Admin Dose Admin Acetaminophen/ Hydrocodone Bitart 1 tab Q4HP PRN PO 10/19/24 16:45 10/22/24 20:32 1 TAB Acetaminophen 650 mg Q6HP PRN PO 10/19/24 16:45 Morphine Sulfate 2 mg Q4HPRN PRN IV 10/19/24 16:45 10/23/24 04:53 2 MG Enoxaparin Sodium 40 mg DAILY SC 10/20/24 10:00 10/22/24 08:54 40 MG Methocarbamol 500 mg TID PO 10/19/24 22:00 10/23/24 05:49 500 MG Gabapentin 600 mg TID PO 10/19/24 22:00 10/23/24 05:49 600 MG Patient Own Medication 1 patch DAILY TOP 10/20/24 10:00 Ondansetron HCl 4 mg Q4HPRN PRN IV 10/19/24 18:00 10/19/24 18:06 4 MG Laboratory Results Laboratory Tests 10/20/24 06:08 Urinalysis Test 10/19/24 17:50 Urine Color Colorless (Yellow) Urine Clarity Clear (Clear) Urine pH 6.5 (5.0-9.0) Urine Specific [place] 1.005 (1.001-1.035) Urine Protein Negative (Negative) Urine Ketones Negative (Negative) Urine Blood Negative /uL (Negative) Urine Nitrite 2+ (Negative) H Urine Bilirubin Negative (Negative) Urine Urobilinogen Normal mg/dL (Negative) Urine Leukocyte Esterase Trace /uL (Negative) Urine RBC 1 /hpf (0 - 4) Urine Microscopic WBC 4 /HPF (0-5) Urine Squamous Epithelial Cells Few /hpf (<5) Urine Bacteria Few /hpf (None Seen) H Urine Glucose Normal mg/dL (Normal) Labs and/or images reviewed: Labs reviewed by me, Image(s) reviewed by me Assessment/Plan Assessment/Plan Acute Left hip pain: Left hip x-ray negative, left hip CT shows possible loosening of the hardware [place] Robaxin gabapentin Status post left hip arthroplasty by Dr Yossi Peters at [facility] 12/13/2022 consult for treated, patient going for surgery on 10/23/2024, patient getting revision surgery today by Dr. Mello. Severe DJD left hip Plan discussed with: Patient My Orders Orders - BIGG SOLARES MD Procedure Category Date Status Time Chest Portable XY 10/23/24 Resulted 07:37 Date of Service: October 23, 2024 Billing Provider: BIGG SOLARES MD Common Visit Codes: [id number] INP/OBS CARE(HIGH) BIGG SOLARES MD October 23, 2024 13:32
[2024-10-23] MEDS ORDERED: ALBUTEROL SULFATE 90 MCG MDI IN ONE (14:43)
--- NOTE | 2024-10-23 15:06 | DVH ---
C-ARM FLUOROSCOPY: PROCEDURE: Left total hip revision FLUOROSCOPY TIME: 6.5 sec DAP: 1.49 mgy FINDINGS: Spot intraoperative C arm radiographs demonstrating left total hip arthroplasty. IMPRESSION: Please refer to surgical report for detailed findings.
[2024-10-23] MEDS ORDERED: NALOXONE HCL 0.4 MG/ML VIAL IV PRN ×2 (15:15→15:45)
[2024-10-23] MEDS ORDERED: HYDROmorphone HCL 2 MG/ML VL/or syr IV PRN (15:15)
[2024-10-23] MEDS ORDERED: diphenhdrAMINE HCL 50 MG/1 ML VL IV PRN ×2 (15:15→15:45)
[2024-10-23] MEDS ORDERED: ONDANSETRON HCL 4 MG/2 ML VIAL IV PRN ×2 (15:15→15:45)
--- NOTE | 2024-10-23 15:39 | DVH ---
CLINICAL INDICATION: postop TECHNIQUE: 4 radiographic views of the left tip were obtained. Comparison: None FINDINGS/IMPRESSION: Postsurgical changes from left hip arthroplasty.
[2024-10-23] MEDS ORDERED: DexAMETHasone SOD PHOS 10MG/1ML VIAL INJ IV PRN (15:45)
[2024-10-23] MEDS ORDERED: KETOROLAC TROMETH 30 MG/ML 1ML VIAL IV PRN (15:45)
[2024-10-23] MEDS: ceFAZolin 1GM/50ML 50 ML IV SCH (21:57)
[2024-10-23] MEDS: CIPROFLOXACIN 400MG/200ML 200 ML IV SCH (21:57)
[2024-10-24] VITALS (19 sets, daily range): BP systolic 91–115; BP diastolic 39–53; PULSE 87–103; RESP 15–98; TEMP 97.8–99.8; O2SAT 91–100
[2024-10-24] MEDS: KETOROLAC TROMETH 30 MG/ML 1ML VIAL IV PRN (04:38)
--- NOTE | 2024-10-24 07:18 | DVHOP2 ---
Operative Report - 2 Report Details Date: 10/23/24 Preop Diagnosis: Left hip periprosthetic fracture Postop Diagnosis: Left hip periprosthetic fracture Surgeon: Rob Edwards DO Hand Screen Printer: Nadeem HANKS Anesthesiologist: Kimberlyn QUIROZ Anesthesia: General Consent: The patient was informed of the risks and benefits of the procedure. These include but are not limited to complications of anesthesia, postoperative infection, incomplete relief of symptoms, recurrence of symptoms, damage to blood vessels, nerves and tendons, deep venous thrombosis, pulmonary embolism and possible need for repeat surgery in the future. Estimated Blood Loss: 500 cc Indications for Surgery: left hip periprosthetic fracture with subsiding of the femoral component Name of Procedure Performed 1. Revision left total hip arthroplasty 2. Extended trochanteric osteotomy 3. Complex wound closure of 40 cm Procedure Details Procedure Details: INDICATION: Preoperatively in the waiting area, I had a long discussion with the patient regarding the plan, the expected outcome, the risks, benefits, and alternatives of surgery. The risks include, but are not limited to, infection (which may require future surgery and removal of implants) , bleeding (which may require a transfusion), damage to nerves, arteries, veins, tendons, muscles and other adjacent structures. Also discussed the possibilities of dislocation, leg- length discrepancy, intraoperative fractures, implant loosening, heterotopic bone formation, and revision for variety of reasons, and medical complications etc. This was discussed at length and consent has been obtained. DESCRIPTION OF PROCEDURE: In the preoperative holding area, the consent was reviewed and the appropriate extremity was verified by the patient and marked with my initials. The patient was then transferred to the operating theatre. Appropriate anest hetia was induced. All bony prominences were well padded. A time out was performed verifying the side and site of surgery according to standard protocol. Preoperative antibiotics were given. Tranexamic acid was given. The patient was then placed in the lateral decubitus position and fixed with rigid pelvic fixation. All bony prominences were well padded and an axillary roll was placed. The affected hip area was then prepped and draped in the usual sterile fashion. We made a standard posterolateral incision utilizing previous incision sharply through the skin and carried our dissection down through subcutaneous tissue to the underlying fascia achieving hemostasis where necessary. We incised the fascia in line with our incision. We identified and protected the sciatic nerve. We took down the external rotators and hip capsule from their insertion into the greater trochanter, tagged them and retracted them posteriorly for further protection of the sciatic nerve. Dissection taken to soft tissue to the bone to prepare for an extended troch osteotomy which was done to take implant out. Using different techniques we were able to take out the femur. Acetabulum was intact. Attention was then turned to the femur. We used a box osteotome followed by a canal finder to gain entry to the canal. Intramedullary contents were suctioned and care was taken to ensure they did not touch the tissues. We sequentially reamed until good cortical contact, then broached up to out final size. We trialed with the appropriate femoral neck and head and reduced the hip. The hip was taken through a full range of motion. The hip soft tissues were examined in extension and external rotation, the anterior capsule and IT band were palpated, and combined anteversion was determined to be 40 degrees. The hip was stable at maximum flexion, at 90 degrees of flexion and 45 degrees of internal rotation and the position of sleep. Leg lengths were restored as shown using the computer navigation, and the trial LTC matched preoperative and intraoperative templating. The hip was then dislocated and trial components removed. We copiously irrigated the wound and impacted the final femoral stem into position. The femoral head was impacted onto a clean and dry trunion and confirmed to be seated. The hip was reduced ensuring to tissues in the acetabular cup. We again brought it through a full functional range of motion and there was no evidence for dislocation, instability, or impingement. ETO was fixed with cerclage wires. The checkpoint was removed. A dilute betadine solution (17.5mL in 500mL saline) was used to wash the joint and left to sit for 3 minutes. This was then irrigated out with copious amounts of pulse lavage. We sprinkled 1g vancomycin powder below the fascia and 1g above the fascia. We copiously irrigated the wound and soft tissues. The short external rotators and capsule were repaired to the greater trochanter through drill holes, and the quadratus was repaired. We palpated the sciatic nerve in continuity without tension. The fascia was closed with vicryl and a barbed suture. Complex multi layer wound closure due to the amount of scar tissue in all tissue planes. We closed over the fascia with vicryl suture and re-approximated the skin with staokes. A sterile dressing was placed. We returned the patient to the supine position. We verified all lower extremity compartments were soft and compressible and that we had intact distal pulses and checked our leg length spiritism. We took an AP Pelvis in the operating room, which we reviewed prior to transfer. The patient was then transferred to the recovery room in stable condition. Condition Fair Disposition Still a Patient ROBBIN CLAY MD October 24, 2024 07:18
--- NOTE | 2024-10-24 07:49 | DVHPN2 ---
Progress Note Date Seen: October 24, 2024 Medical Necessity Reason Pt with a Central, PICC or Fol: No Subjective Patient reports: No new complaints (patient is arousable but states she is sleepy and does not feel pain when she is asleep.) Objective vital signs Vital Sign Date Time Temp Pulse Resp B/P (MAP) Pulse Ox O2 Delivery O2 Flow Rate FiO2 10/24/24 06:04 96 98 98 10/24/24 05:00 97.8 115/47 (69) 97.8 10/23/24 20:00 Nasal Cannula* 1 24 Total Intake and Output 10/23/24 10/23/24 10/24/24 15:00 23:00 07:00 Intake Total 100 ml 950 ml 250 ml Output Total 300 ml Balance 100 ml 950 ml -50 ml medications Current Medications Medications Dose Ordered Sig/Maddi Route Start Time Stop Time Status Last Admin Dose Admin Acetaminophen/ Hydrocodone Bitart 1 tab Q4HP PRN PO 10/19/24 16:45 10/22/24 20:32 1 TAB Acetaminophen 650 mg Q6HP PRN PO 10/19/24 16:45 Morphine Sulfate 2 mg Q4HPRN PRN IV 10/19/24 16:45 10/23/24 04:53 2 MG Enoxaparin Sodium 40 mg DAILY SC 10/20/24 10:00 10/22/24 08:54 40 MG Methocarbamol 500 mg TID PO 10/19/24 22:00 10/24/24 05:16 500 MG Gabapentin 600 mg TID PO 10/19/24 22:00 10/24/24 05:15 600 MG Patient Own Medication 1 patch DAILY TOP 10/20/24 10:00 Ciprofloxacin 200 ml @ 200 mls/hr Q8HR IV 10/23/24 22:00 10/24/24 05:16 200 MLS/HR Cefazolin Sodium 50 ml @ 100 mls/hr Q8HR IV 10/23/24 22:00 10/24/24 05:16 100 MLS/HR Diphenhydramine HCl 25 mg Q4HP PRN IV 10/23/24 15:15 Ondansetron HCl 4 mg Q4HP PRN IV 10/23/24 15:15 Ketorolac Tromethamine 30 mg Q6HP PRN IV 10/23/24 15:15 10/28/24 15:14 10/24/24 04:38 30 MG Diphenhydramine HCl 25 mg Q4HP PRN IV 10/23/24 15:45 UNV Ondansetron HCl 4 mg Q4HP PRN IV 10/23/24 15:45 UNV Naloxone HCl 0.2 mg Q5M PRN IV 10/23/24 15:45 10/23/24 15:51 UNV Ketorolac Tromethamine 30 mg Q6HP PRN IV 10/23/24 15:45 10/28/24 15:44 UNV Examination: GENERAL:Normal, MSK:Abnormal laboratory and microbiology Laboratory Tests 10/20/24 06:08 Test 10/20/24 06:08 Range/Units Serum Glucose 102 74-106 mg/dL Problem List/Assessment/Plan Problem List/Assessment/Plan 64 year old female who is s/p Left Total Hip Revision POD 1 1. Pain control 2. Toe touch weight bearing to the left lower extremity 3. DVT ppx 4. Can work with physical therapy as tolerated with restrictions in place Plan discussed with: Patient My Orders My Orders Orders - NICOLE NJ NP Procedure Category Date Status Time Weight-Bearing ZOHREH 10/23/24 In Process Restrictions 14:05 Ciprofloxacin PHA 10/23/24 In Process 400mg/200ml (Cipro Iv) 22:00 Cefazolin 1gm/50ml PHA 10/23/24 In Process (Ancef) 22:00 Regular Diet DIET 10/23/24 Transmitted Dinner L Femur Xray XY 10/23/24 Resulted 14:37 Date of Service: October 24, 2024 Billing Provider: ROBBIN CLAY MD Common Visit Codes: NOT BILLABLE NICOLE NJ NP October 24, 2024 07:49
--- NOTE | 2024-10-24 13:30 | DVHPN2 ---
Reviewed: Care Plan, H&P, Labs, Medications, Previous Orders, Radiology Changes from previous H/P or p: No Changes Musculoskeletal: other (Left hip pain) Objective Vitals Vital Signs Date Time Temp Pulse Resp B/P (MAP) Pulse Ox O2 Delivery O2 Flow Rate FiO2 10/24/24 12:33 98.4 91 16 98/40 (59) 99 98.4 10/24/24 08:00 Room Air* 0 21 Intake/Output Intake and Output 10/24/24 07:00 Intake Total 1300 ml Output Total 300 ml Balance 1000 ml Intake Oral 900 ml IV Total 400 ml Output Urine Total 300 ml Medications Current Medications Medications Dose Ordered Sig/Maddi Route Start Time Stop Time Status Last Admin Dose Admin Acetaminophen/ Hydrocodone Bitart 1 tab Q4HP PRN PO 10/19/24 16:45 10/24/24 13:11 1 TAB Acetaminophen 650 mg Q6HP PRN PO 10/19/24 16:45 Morphine Sulfate 2 mg Q4HPRN PRN IV 10/19/24 16:45 10/23/24 04:53 2 MG Enoxaparin Sodium 40 mg DAILY SC 10/20/24 10:00 10/24/24 08:42 40 MG Methocarbamol 500 mg TID PO 10/19/24 22:00 10/24/24 05:16 500 MG Gabapentin 600 mg TID PO 10/19/24 22:00 10/24/24 05:15 600 MG Patient Own Medication 1 patch DAILY TOP 10/20/24 10:00 Ciprofloxacin 200 ml @ 200 mls/hr Q8HR IV 10/23/24 22:00 10/24/24 05:16 200 MLS/HR Cefazolin Sodium 50 ml @ 100 mls/hr Q8HR IV 10/23/24 22:00 10/24/24 05:16 100 MLS/HR Diphenhydramine HCl 25 mg Q4HP PRN IV 10/23/24 15:15 Ondansetron HCl 4 mg Q4HP PRN IV 10/23/24 15:15 Ketorolac Tromethamine 30 mg Q6HP PRN IV 10/23/24 15:15 10/28/24 15:14 10/24/24 10:41 30 MG Diphenhydramine HCl 25 mg Q4HP PRN IV 10/23/24 15:45 UNV Ondansetron HCl 4 mg Q4HP PRN IV 10/23/24 15:45 UNV Naloxone HCl 0.2 mg Q5M PRN IV 10/23/24 15:45 10/23/24 15:51 UNV Ketorolac Tromethamine 30 mg Q6HP PRN IV 10/23/24 15:45 10/28/24 15:44 UNV Laboratory Results Laboratory Tests 10/20/24 06:08 Urinalysis Test 10/19/24 17:50 Urine Color Colorless (Yellow) Urine Clarity Clear (Clear) Urine pH 6.5 (5.0-9.0) Urine Specific [place] 1.005 (1.001-1.035) Urine Protein Negative (Negative) Urine Ketones Negative (Negative) Urine Blood Negative /uL (Negative) Urine Nitrite 2+ (Negative) H Urine Bilirubin Negative (Negative) Urine Urobilinogen Normal mg/dL (Negative) Urine Leukocyte Esterase Trace /uL (Negative) Urine RBC 1 /hpf (0 - 4) Urine Microscopic WBC 4 /HPF (0-5) Urine Squamous Epithelial Cells Few /hpf (<5) Urine Bacteria Few /hpf (None Seen) H Urine Glucose Normal mg/dL (Normal) Microbiology Microbiology Date/Time Source Procedure Growth Status 10/23/24 12:00 Hip Left Anaerobic Culture - Preliminary Resulted 10/23/24 12:00 Hip Left Aerobic Culture - Preliminary Resulted Labs and/or images reviewed: Labs reviewed by me, Image(s) reviewed by me Assessment/Plan Assessment/Plan Acute Left hip pain: Left hip x-ray negative, left hip CT shows possible loosening of the hardware [place] Robaxin gabapentin Status post left hip arthroplasty by Dr Yossi Peters at [facility] 12/13/2022 consult for appreciated Status post revision left total hip arthroplasty with extended trochanteric osteotomy and complex wound closure by 0n 10-23-24 Severe DJD left hip Physical therapy ordered Plan discussed with: Patient My Orders Orders - BIGG SOLARES MD Procedure Category Date Status Time Pt Request For Service PT 10/24/24 Logged 09:45 Date of Service: October 24, 2024 Billing Provider: BIGG SOLARES MD Common Visit Codes: [id number] INP/OBS CARE(HIGH) BIGG SOLARES MD October 24, 2024 13:30
[2024-10-24] MEDS: SODIUM CHLORIDE 0.9% 1,000 ML IV SCH (13:39)
[2024-10-24] MEDS: HYDROcodone-ACET 10/325MG TAB PO SCH (17:17)
[2024-10-24] MEDS ORDERED: HYDROcodone-ACET 10/325MG TAB PO SCH (18:00)
[2024-10-25] VITALS (8 sets, daily range): BP systolic 94–118; BP diastolic 45–64; PULSE 62–95; RESP 15–21; TEMP 97.6–98.9; O2SAT 93–98
--- NOTE | 2024-10-25 08:08 | DVHPN2 ---
Progress Note Date Seen: October 25, 2024 Medical Necessity Reason Pt with a Central, PICC or Fol: Yes The following are medically ne: Gaytan Catheter Subjective Patient reports: No new complaints Objective vital signs Vital Sign Date Time Temp Pulse Resp B/P (MAP) Pulse Ox O2 Delivery O2 Flow Rate FiO2 10/25/24 07:45 Room Air* 0 21 10/25/24 05:00 98.9 62 16 105/49 (67) 98 98.9 Total Intake and Output 10/24/24 10/24/24 10/25/24 15:00 23:00 07:00 Intake Total 50 ml 1525 ml 1025 ml Output Total 550 ml 850 ml Balance 50 ml 975 ml 175 ml medications Current Medications Medications Dose Ordered Sig/Maddi Route Start Time Stop Time Status Last Admin Dose Admin Acetaminophen 650 mg Q6HP PRN PO 10/19/24 16:45 Morphine Sulfate 2 mg Q4HPRN PRN IV 10/19/24 16:45 10/23/24 04:53 2 MG Enoxaparin Sodium 40 mg DAILY SC 10/20/24 10:00 10/24/24 08:42 40 MG Methocarbamol 500 mg TID PO 10/19/24 22:00 10/25/24 05:30 500 MG Gabapentin 600 mg TID PO 10/19/24 22:00 10/25/24 05:30 600 MG Patient Own Medication 1 patch DAILY TOP 10/20/24 10:00 Ciprofloxacin 200 ml @ 200 mls/hr Q8HR IV 10/23/24 22:00 10/25/24 05:31 200 MLS/HR Cefazolin Sodium 50 ml @ 100 mls/hr Q8HR IV 10/23/24 22:00 10/25/24 05:31 100 MLS/HR Diphenhydramine HCl 25 mg Q4HP PRN IV 10/23/24 15:15 Ondansetron HCl 4 mg Q4HP PRN IV 10/23/24 15:15 Ketorolac Tromethamine 30 mg Q6HP PRN IV 10/23/24 15:15 10/28/24 15:14 10/24/24 19:58 30 MG Diphenhydramine HCl 25 mg Q4HP PRN IV 10/23/24 15:45 UNV Ondansetron HCl 4 mg Q4HP PRN IV 10/23/24 15:45 UNV Naloxone HCl 0.2 mg Q5M PRN IV 10/23/24 15:45 10/23/24 15:51 UNV Ketorolac Tromethamine 30 mg Q6HP PRN IV 10/23/24 15:45 10/28/24 15:44 UNV Sodium Chloride 1,000 ml @ 125 mls/hr Q8H IV 10/24/24 13:30 10/25/24 05:30 125 MLS/HR Alprazolam 1 mg Q8HPRN PRN PO 10/24/24 13:30 Acetaminophen/ Hydrocodone Bitart 1 tab Q6HR PO 10/24/24 18:00 10/25/24 05:30 1 TAB Examination: GENERAL:Normal, MSK:Abnormal laboratory and microbiology Laboratory Tests 10/20/24 06:08 Test 10/20/24 06:08 Range/Units Serum Glucose 102 74-106 mg/dL Microbiology Date/Time Source Procedure Growth Status 10/23/24 12:00 Hip Left Anaerobic Culture - Preliminary Resulted 10/23/24 12:00 Hip Left Aerobic Culture - Preliminary Resulted Problem List/Assessment/Plan Problem List/Assessment/Plan 64 year old female who is s/p Left Total Hip Revision POD 2 1. Pain control 2. Toe touch weight bearing to the left lower extremity 3. DVT ppx 4. Can work with physical therapy as tolerated with restrictions in place 5. recommending SNF for post-op assistance and therapy 6. clear for discharge from orthopedic standpoint POSTOPERATIVE Posterior Total Hip INSTRUCTIONS Activity: 1. You are to remain toe touch weight bearing on the left leg until next visit. You may use the walking aid which you were discharged with and switch to a cane whenever you feel comfortable doing so. You should use an assistive device until you can walk comfortably without it. Keep in mind that every patient moves at their own speed of recovery so take your time. 2. A physical therapist will visit you at home/SNF. 3. Although guarantees against a dislocation do not exist, the hip was noted to be sufficiently stable in surgery. Below are motions that you should dischargenot do for 4-6 weeks, depending on the surgical approach used. If there are questions, please call the office. a. Bend forward past 90 degrees b. Sit on a regular low chair, couch, car seat etc... c. Cross your legs d. Use a regular low toilet seat. e. Sleep on your stomach or on either side. 3. High impact activity such as jumping, aerobics, tennis, and skiing are not permitted during the first 3 months after surgery. These activities can contribute to accelerated wear and should be done with caution after this time. Discuss this with your surgeon if you have questions. 4. Although a bath or whirlpool is NOT permitted during the first 2-3 weeks, you may shower as soon as you get home from the hospital provided you are able to keep your bandage clean and dry and there is no wound drainage. If you are unable to place a secured covering over your bandage bed bath/sponge bath may likely be the more appropriate option. 5. Swimming is not permitted until the wound is healed, which typically occurs approximately 3-4 weeks after surgery. Wound Management: If the wound is draining please change the gauze pad on the wound until it stops. If drainage persists past 10 days please notify our office. If there is a sticky gel dressing over your wound, you may leave this in place for as long as it is clean and dry. If it becomes loose or causes skin irritation, it is OK to remove it and place clean gauze over your wound. 1. You might notice some bruising around the surgical site, this is normal. 2. Check your temperature on a daily basis. Please note that a low-grade temp below 101 is not uncommon after surgery especially during the first 3 days. Notify the office if your temperature spikes above 101.5 after the 3rd post- operative date. 3. Many patients experience significant swelling in the thigh, this may extend below the knee and sometimes to the ankle. Swelling increases during the first week and subsides during the following week. 4. Provided you have been on a blood thinner since surgery and have been up and about at least three times per day, the risk of a blood clot is low and this swelling is an expected part of recovery. It will largely or completely resolve by your first post-operative visit. 5. Aidan, if present, will be removed at 2 weeks during initial post-op visit. Medications: 1. You will be discharged with pain medication, Aspirin as a blood thinner and sometimes an anti-inflammatory medication such as Celebrex or Mobic might be prescribed. Please follow the instructions regarding these medicines as provided by your nurse at the hospital. 2. Narcotic pain medication has side effects, including constipation. Please ensure you continue to take stool softeners (Colace, Senna) while taking your pain medication to help protect against constipation. Getting up and moving around at least a few times per day helps with this also. 3. Lovenox 40 Sq x 12 days followed by one regular strength 325 mg coated aspirin daily for 4 weeks after surgery. Then, take one baby aspirin, 81 mg daily for 6 weeks more. A major, yet preventable, complication of Orthopaedic Surgery is a blood clot (DVT). It is important not to miss any doses of this important medication. 4. You should restart all of your prescription medications once discharged unless specifically instructed otherwise. 5. Herbal supplements may be restarted 2 weeks after surgery. Miscellaneous issues: 1. Driving is not permitted within the first 2 weeks. 2. Your first postoperative visit will take place 2weeks after discharge. Please call the office to arrange this appointment. 3. Antibiotic preventative treatment is required before dental or other invasive procedures. Please ask your surgeon about this at your first postoperative visit. Your hip replacement contains metal which may activate metal detectors. You may wish to carry a letter from your surgeon to communicate this to security personnel. If you experience chest pain, shortness of breath or severe painful calf swelling, go to the nearest emergency room to be evaluated. Please call our office once your situation is stabilized. Plan discussed with: Patient Date of Service: October 25, 2024 Billing Provider: ROBBIN CLAY MD Common Visit Codes: NOT BILLABLE NICOLE [place] NP October 25, 2024 08:07
[2024-10-25] MEDS: ALPRAZolam 0.5 MG TAB PO PRN (08:33)
--- NOTE | 2024-10-25 11:32 | DVHPN2 ---
Reviewed: Care Plan, H&P, Labs, Medications, Previous Orders, Radiology Changes from previous H/P or p: No Changes Musculoskeletal: other (Left hip pain) Objective Vitals Vital Signs Date Time Temp Pulse Resp B/P (MAP) Pulse Ox O2 Delivery O2 Flow Rate FiO2 10/25/24 09:16 98.7 88 21 102/47 (65) 96 98.7 10/25/24 07:45 Room Air* 0 21 Intake/Output Intake and Output 10/25/24 07:00 Intake Total 2600 ml Output Total 1400 ml Balance 1200 ml Intake Oral 1100 ml IV Total 1500 ml Output Urine Total 1400 ml Medications Current Medications Medications Dose Ordered Sig/Maddi Route Start Time Stop Time Status Last Admin Dose Admin Acetaminophen 650 mg Q6HP PRN PO 10/19/24 16:45 Morphine Sulfate 2 mg Q4HPRN PRN IV 10/19/24 16:45 10/23/24 04:53 2 MG Enoxaparin Sodium 40 mg DAILY SC 10/20/24 10:00 10/25/24 08:33 40 MG Methocarbamol 500 mg TID PO 10/19/24 22:00 10/25/24 05:30 500 MG Gabapentin 600 mg TID PO 10/19/24 22:00 10/25/24 05:30 600 MG Patient Own Medication 1 patch DAILY TOP 10/20/24 10:00 Ciprofloxacin 200 ml @ 200 mls/hr Q8HR IV 10/23/24 22:00 10/25/24 05:31 200 MLS/HR Cefazolin Sodium 50 ml @ 100 mls/hr Q8HR IV 10/23/24 22:00 10/25/24 05:31 100 MLS/HR Diphenhydramine HCl 25 mg Q4HP PRN IV 10/23/24 15:15 Ondansetron HCl 4 mg Q4HP PRN IV 10/23/24 15:15 Ketorolac Tromethamine 30 mg Q6HP PRN IV 10/23/24 15:15 10/28/24 15:14 10/25/24 10:00 30 MG Diphenhydramine HCl 25 mg Q4HP PRN IV 10/23/24 15:45 UNV Ondansetron HCl 4 mg Q4HP PRN IV 10/23/24 15:45 UNV Naloxone HCl 0.2 mg Q5M PRN IV 10/23/24 15:45 10/23/24 15:51 UNV Ketorolac Tromethamine 30 mg Q6HP PRN IV 10/23/24 15:45 10/28/24 15:44 UNV Sodium Chloride 1,000 ml @ 125 mls/hr Q8H IV 10/24/24 13:30 10/25/24 05:30 125 MLS/HR Alprazolam 1 mg Q8HPRN PRN PO 10/24/24 13:30 10/25/24 08:33 1 MG Acetaminophen/ Hydrocodone Bitart 1 tab Q6HR PO 10/24/24 18:00 10/25/24 05:30 1 TAB Laboratory Results Laboratory Tests 10/20/24 06:08 Urinalysis Test 10/19/24 17:50 Urine Color Colorless (Yellow) Urine Clarity Clear (Clear) Urine pH 6.5 (5.0-9.0) Urine Specific [place] 1.005 (1.001-1.035) Urine Protein Negative (Negative) Urine Ketones Negative (Negative) Urine Blood Negative /uL (Negative) Urine Nitrite 2+ (Negative) H Urine Bilirubin Negative (Negative) Urine Urobilinogen Normal mg/dL (Negative) Urine Leukocyte Esterase Trace /uL (Negative) Urine RBC 1 /hpf (0 - 4) Urine Microscopic WBC 4 /HPF (0-5) Urine Squamous Epithelial Cells Few /hpf (<5) Urine Bacteria Few /hpf (None Seen) H Urine Glucose Normal mg/dL (Normal) Microbiology Microbiology Date/Time Source Procedure Growth Status 10/23/24 12:00 Hip Left Anaerobic Culture - Preliminary Resulted 10/23/24 12:00 Hip Left Aerobic Culture - Preliminary Resulted Labs and/or images reviewed: Labs reviewed by me, Image(s) reviewed by me Assessment/Plan Assessment/Plan Acute Left hip pain: Left hip x-ray negative, left hip CT shows possible loosening of the hardware [place] Robaxin gabapentin Status post left hip arthroplasty by Dr Yossi Peters at [facility] 12/13/2022 consult for appreciated Status post revision left total hip arthroplasty with extended trochanteric osteotomy and complex wound closure by 0n 10-23-24 Severe DJD left hip Physical therapy ordered Plan discussed with: Patient My Orders Orders - BIGG SOLARES MD Procedure Category Date Status Time Sodium Chloride 0.9% PHA 10/24/24 In Process 13:30 Alprazolam Tablet PHA 10/24/24 In Process (Xanax Tablet) 13:30 Hydrocodone-Acet PHA 10/24/24 In Process 10/325mg Tab ([place] 18:00 Date of Service: October 25, 2024 Billing Provider: BIGG SOLARES MD Common Visit Codes: [id number] INP/OBS CARE(HIGH) BIGG SOLARES MD October 25, 2024 11:31
[2024-10-26] VITALS (8 sets, daily range): BP systolic 97–132; BP diastolic 39–64; PULSE 80–92; RESP 16–20; TEMP 97.8–98.4; O2SAT 96–100
--- NOTE | 2024-10-26 10:57 | DVHPN2 ---
Reviewed: Care Plan, H&P, Labs, Medications, Previous Orders, Radiology Changes from previous H/P or p: No Changes Musculoskeletal: other Objective Vitals Vital Signs Date Time Temp Pulse Resp B/P (MAP) Pulse Ox O2 Delivery O2 Flow Rate FiO2 10/26/24 09:00 97.9 85 20 108/53 (71) 98 97.9 10/26/24 08:00 Room Air* 0 21 Intake/Output Intake and Output 10/26/24 07:00 Intake Total 2350 ml Output Total 2700 ml Balance -350 ml Intake Oral 1200 ml IV Total 1150 ml Output Urine Total 2700 ml Medications Current Medications Medications Dose Ordered Sig/Madid Route Start Time Stop Time Status Last Admin Dose Admin Acetaminophen 650 mg Q6HP PRN PO 10/19/24 16:45 Morphine Sulfate 2 mg Q4HPRN PRN IV 10/19/24 16:45 10/23/24 04:53 2 MG Enoxaparin Sodium 40 mg DAILY SC 10/20/24 10:00 10/25/24 08:33 40 MG Methocarbamol 500 mg TID PO 10/19/24 22:00 10/26/24 05:38 500 MG Gabapentin 600 mg TID PO 10/19/24 22:00 10/26/24 05:38 600 MG Patient Own Medication 1 patch DAILY TOP 10/20/24 10:00 Ciprofloxacin 200 ml @ 200 mls/hr Q8HR IV 10/23/24 22:00 10/26/24 06:09 200 MLS/HR Cefazolin Sodium 50 ml @ 100 mls/hr Q8HR IV 10/23/24 22:00 10/26/24 05:33 100 MLS/HR Diphenhydramine HCl 25 mg Q4HP PRN IV 10/23/24 15:15 Ondansetron HCl 4 mg Q4HP PRN IV 10/23/24 15:15 Ketorolac Tromethamine 30 mg Q6HP PRN IV 10/23/24 15:15 10/28/24 15:14 10/25/24 16:25 30 MG Diphenhydramine HCl 25 mg Q4HP PRN IV 10/23/24 15:45 UNV Ondansetron HCl 4 mg Q4HP PRN IV 10/23/24 15:45 UNV Naloxone HCl 0.2 mg Q5M PRN IV 10/23/24 15:45 10/23/24 15:51 UNV Ketorolac Tromethamine 30 mg Q6HP PRN IV 10/23/24 15:45 10/28/24 15:44 UNV Sodium Chloride 1,000 ml @ 125 mls/hr Q8H IV 10/24/24 13:30 10/26/24 05:33 125 MLS/HR Alprazolam 1 mg Q8HPRN PRN PO 10/24/24 13:30 10/25/24 08:33 1 MG Acetaminophen/ Hydrocodone Bitart 1 tab Q6HR PO 10/24/24 18:00 10/26/24 05:38 1 TAB Laboratory Results Laboratory Tests 10/20/24 06:08 Urinalysis Test 10/19/24 17:50 Urine Color Colorless (Yellow) Urine Clarity Clear (Clear) Urine pH 6.5 (5.0-9.0) Urine Specific [place] 1.005 (1.001-1.035) Urine Protein Negative (Negative) Urine Ketones Negative (Negative) Urine Blood Negative /uL (Negative) Urine Nitrite 2+ (Negative) H Urine Bilirubin Negative (Negative) Urine Urobilinogen Normal mg/dL (Negative) Urine Leukocyte Esterase Trace /uL (Negative) Urine RBC 1 /hpf (0 - 4) Urine Microscopic WBC 4 /HPF (0-5) Urine Squamous Epithelial Cells Few /hpf (<5) Urine Bacteria Few /hpf (None Seen) H Urine Glucose Normal mg/dL (Normal) Microbiology Microbiology Date/Time Source Procedure Growth Status 10/23/24 12:00 Hip Left Anaerobic Culture - Preliminary Resulted 10/23/24 12:00 Hip Left Aerobic Culture - Preliminary Resulted Labs and/or images reviewed: Labs reviewed by me, Image(s) reviewed by me Assessment/Plan Assessment/Plan Acute Left hip pain: Left hip x-ray negative, left hip CT shows possible loosening of the hardware [place] Robaxin gabapentin Status post left hip arthroplasty by Dr Yossi Peters at [facility] 12/13/2022 consult for appreciated Status post revision left total hip arthroplasty with extended trochanteric osteotomy and complex wound closure by 0n 10-23-24 Severe DJD left hip Physical therapy ordered Plan discussed with: Patient Date of Service: October 26, 2024 Billing Provider: BIGG SOLARES MD Common Visit Codes: [id number] INP/OBS CARE(HIGH) BIGG SOLARES MD October 26, 2024 10:57
[2024-10-27 05:00] VITALS: BP 106/52; PULSE 91; RESP 19; TEMP 98.6; O2SAT 92
[2024-10-27 08:00] VITALS: PULSE 82
[2024-10-27 08:12] LABS: COVID19 ANTIGEN SOFIA FIA NEGATIVE (NEGATIVE)
[2024-10-27 09:00] VITALS: BP_SYST 111; BP_SYST 92; BP_DIAS 53; BP_DIAS 64; PULSE 100; PULSE 81; RESP 18; TEMP 98.4; TEMP 98.6; O2SAT 100; O2SAT 92
--- NOTE | 2024-10-27 11:17 | DVHDS2 ---
Discharge Summary Date of Admission October 19, 2024 at 16:31 Date of Discharge: October 27, 2024 Admitting Diagnosis Left hip fracture Wounds: Left Hip total arthroplasty Labs/Diagnostic Data: Laboratory Results Test 10/27/24 06:30 10/21/24 12:55 10/20/24 06:08 10/19/24 17:50 SARS-CoV-2 Antigen (Rapid) Negative (NEGATIVE) Erythrocyte Sedimentation Rate 67 mm/hr (0-20) C-Reactive Protein High Sensitivity 4.11 mg/dL (<1.0) White Blood Count 7.0 10^3/uL (4.4-10.8) Red Blood Count 4.27 10^6/uL (4.0-5.20) Hemoglobin 12.1 g/dL (12.2-16.2) Hematocrit 35.9 % (36.0-46.0) Mean Corpuscular Volume 84.2 fL (80.0-100.0) Mean Corpuscular Hemoglobin 28.3 pg (28.0-32.0) Mean Corpuscular Hemoglobin Concent 33.6 g/dL (32.0-36.0) Red Cell Distribution Width 14.6 % (11.8-14.3) Platelet Count 362 10^3/uL (140-450) Mean Platelet Volume 7.6 fL (6.9-10.8) Neutrophils (%) (Auto) 56.7 % (37.0-80.0) Lymphocytes (%) (Auto) 27.5 % (10.0-50.0) Monocytes (%) (Auto) 12.6 % (0.0-12.0) Eosinophils (%) (Auto) 2.5 % (0.0-7.0) Basophils (%) (Auto) 0.7 % (0.0-2.0) Neutrophils # (Auto) 4.0 10 ^3/uL (1.6-8.6) Lymphocytes # (Auto) 1.9 10 ^3/uL (0.4-5.4) Monocytes # (Auto) 0.9 10 ^3/uL (0-1.3) Eosinophils # (Auto) 0.2 10 ^3/uL (0-0.8) Basophils # (Auto) 0.1 10 ^3/uL (0-0.2) Nucleated Red Blood Cells 0.1 % Sodium Level 138 mmol/L (136-145) Potassium Level 4.0 mmol/L (3.5-5.1) Chloride Level 102 mmol/L (98-107) Carbon Dioxide Level 31 mmol/L (20-31) Anion Gap 5 (5-15) Blood Urea Nitrogen 21 mg/dL (9-23) Creatinine 0.90 mg/dL (0.550-1.02) Glomerular Filtration Rate Calc 72 mL/min (>90) BUN/Creatinine Ratio 23.3 (10.0-20.0) Serum Glucose 102 mg/dL (74-106) Calcium Level 9.5 mg/dL (8.7-10.4) Total Bilirubin 0.3 mg/dL (0.2-1.0) Aspartate Amino Transferase (AST) 39 U/L (13-40) Alanine Aminotransferase (ALT) 39 U/L (7-40) Alkaline Phosphatase 146 U/L (46-116) Total Protein 6.7 g/dL (5.7-8.2) Albumin 3.8 g/dL (3.2-4.8) Urine Color Colorless (Yellow) Urine Clarity Clear (Clear) Urine pH 6.5 (5.0-9.0) Urine Specific [place] 1.005 (1.001-1.035) Urine Protein Negative (Negative) Urine Ketones Negative (Negative) Urine Blood Negative /uL (Negative) Urine Nitrite 2+ (Negative) Urine Bilirubin Negative (Negative) Urine Urobilinogen Normal mg/dL (Negative) Urine Leukocyte Esterase Trace /uL (Negative) Urine RBC 1 /hpf (0 - 4) Urine Microscopic WBC 4 /HPF (0-5) Urine Squamous Epithelial Cells Few /hpf (<5) Urine Bacteria Few /hpf (None Seen) Urine Glucose Normal mg/dL (Normal) Test 10/19/24 15:24 Prothrombin Time 10.8 sec (9.3-11.8) Prothrombin Time INR 1.02 (0.9-1.15) Other Laboratory Tests 10/20/24 06:08 Brief Hx & Hospital Course: 64-year-old female had left hip arthroplasty by Dr. Canelo martinez 12/13/2022. Patient came back complaining of pain in the left hip left hip CT showed possible loosening of the hardware underwent left hip total arthroplasty with the extended trochanteric osteotomy and complex wound closure by In a year on 10/23/2024. Patient received pain medication physical therapy being discharged to long-term facility for rehab Consults/Reason for consult Orthopedic Dr Mello Operations or Procedures Left hip total arthroplasty Condition at Discharge: Fair Final Diagnosis/Problems List Left hip periprosthetic fracture Status post left hip arthroplasty by Dr Yossi Peters at [facility] 12/13/2022 consult for appreciated Status post revision left total hip arthroplasty with extended trochanteric osteotomy and complex wound closure by Dr.Nayyar boykin 10-23-24 Severe DJD left hip Discharge Disposition: Intermediate Facility Discharge Instruct/Medications Diet: Regular Activity: Light activity Follow Up/Referral: Follow up with the [facility] Medications: see list 39 (Time Taken for discharge summary 39 minutes) Discharge Statement: "Patient was advised to return to the ER or call 911 if any headaches, dizziness, shortness of breath, chest pain, abdominal pain, bleeding, fevers, or worsening of medical condition. Patient was counseled about treatment plan, medications, possible side effects, patientverbalized understanding. All questions were answered to the best of my ability. This discharge took greater then 30 minutes in planning, reviewing documentation, counseling the patient, and discussing with other team members." ASSESSMENT ASSESSMENT Hospital Course Uneventful Assessment Left hip periprosthetic fracture Status post left hip arthroplasty by Dr Yossi Peters at [facility] 12/13/2022 consult for appreciated Status post revision left total hip arthroplasty with extended trochanteric osteotomy and complex wound closure by Dr.Nayyar boykin 10-23-24 Severe DJD left hip Date of Service: October 27, 2024 Billing Provider: BIGG SOLARES MD Common Visit Codes: [id number] DISCH DAY >30min BIGG SOLARES MD October 27, 2024 11:16
[2024-10-27 13:00] VITALS: BP 96/63; PULSE 83; RESP 18; TEMP 98.7; O2SAT 92
[2024-10-27 16:47] VITALS: BP 132/58; PULSE 94; RESP 20; TEMP 98.3; O2SAT 100
[2024-10-27 16:58] VITALS: BP 132/58; PULSE 94; RESP 20; TEMP 36.8; O2SAT 100
== END 2024-10-27 18:36 | DRG 323 ==
LOC: ER 13:58 → OVERFLOW 16:31 → WEST WING 22:55 → TELE-WESTW 10-23 16:04
PROVIDERS: ADMIT Family Medicine; ATTEND Family Medicine
PROC: 0QP704Z Removal of Internal Fixation Device from Left Upper Femur, Open Approach (ICD-10-PCS; 2024-10-23)
PROC: 0SWB0JZ Revision of Synthetic Substitute in Left Hip Joint, Open Approach (ICD-10-PCS; principal; 2024-10-23 10:57)
DX: M97.02XA Periprosthetic fracture around internal prosthetic left hip joint, initial encounter (principal); F10.90 Alcohol use, unspecified, uncomplicated; Z96.642 Presence of left artificial hip joint; Z20.822 Contact with and (suspected) exposure to COVID-19; Z82.49 Family history of ischemic heart disease and other diseases of the circulatory system; X58.XXXA Exposure to other specified factors, initial encounter; Y93.89 Activity, other specified; Y92.89 Other specified places as the place of occurrence of the external cause; Y99.8 Other external cause status; M16.12 Unilateral primary osteoarthritis, left hip; Z80.42 Family history of malignant neoplasm of prostate; Z82.61 Family history of arthritis; Z79.899 Other long term (current) drug therapy
CPT/HCPCS: 36415; 71045; 73501; 73502; 73700; 76000; 80048; 80053; 81001; 85025; 85610; 85652; 86141; 86850; 86900; 86901; 87070; 87075; 87426; 97110; 97163; 97530; G0378; J0690; J0696; J1885; J2003; J2250; J2405; J2704

== ENCOUNTER 2024-10-31 22:38 | Emergency (ER) | payer MEDICAID ==
[~2024-10-31] VITALS: Ht 177.8 cm; Wt 81.8 kg
[~2024-10-31 22:38] MED LIST changes: +GABA-339 PO; +METH-1181 PO
[2024-11-01 00:44] LABS: Basophils # (auto) 0.1 10 ^3/uL (0-0.2); Basophils % (auto) 0.6 % (0.0-2.0); Hematocrit 31.2 % (36.0-46.0); Hemoglobin 10.2 g/dL (12.2-16.2); Lymphocytes # (auto) 1.8 10 ^3/uL (0.4-5.4)
[2024-11-01 00:46] LABS: Eosinophils # (auto) 0.4 10 ^3/uL (0-0.8); Eosinophils % (auto) 3.6 % (0.0-7.0); Lymphocytes % (auto) 14.6 % (10.0-50.0); Mean Corpuscular Hemoglobin 27.9 pg (28.0-32.0); Mean Corpuscular Hgb Conc. 32.7 g/dL (32.0-36.0); Mean Corpuscular Volume 85.3 fL (80.0-100.0); Neutrophils # (auto) 8.8 10 ^3/uL (1.6-8.6); Neutrophils % (auto) 73.2 % (37.0-80.0); Nucleated Red Blood Cells % 0.1 %; Platelet Count (auto) 648 10^3/uL (140-450); Red Blood Cells 3.65 10^6/uL (4.0-5.20); Red Cell Distribution Width 15.1 % (11.8-14.3)
[2024-11-01 00:57] LABS: Alanine Aminotransferase 23 U/L (7-40); Albumin 4.1 g/dL (3.2-4.8); Anion Gap 8 (5-15); Aspartate Aminotransferase 20 U/L (13-40); BUN/Creatinine Ratio 28.6 (10.0-20.0); Blood Urea Nitrogen 18 mg/dL (9-23); Calcium 9.1 mg/dL (8.7-10.4); Carbon Dioxide 27 mmol/L (20-31); Chloride 106 mmol/L (98-107); Sodium 141 mmol/L (136-145); Total Protein 7.1 g/dL (5.7-8.2)
[2024-11-01 01:01] LABS: Alkaline Phosphatase 211 U/L (46-116); Bilirubin, Total 0.3 mg/dL (0.2-1.0); Glucose 111 mg/dL (74-106); Potassium 3.5 mmol/L (3.5-5.1)
--- NOTE | 2024-11-01 01:26 | DVH ---
Left lower extremity venous duplex Clinical History: swelling Comparison: None Technique: Duplex Doppler evaluation of the deep venous system of the left lower extremity from the common femor al vein to the popliteal vein including color Doppler and spectral/pulsed waveform analysis was perfo rmed. Findings: The common femoral vein demonstrates appropriate compressibility and waveform variability. There is compressibility/patency of the great saphenous vein at the proximal thigh. The femoral vein demonstrates appropriate compressibility and waveform variability. The deep femoral vein demonstrates appropriate compressibility and waveform variability. The popliteal vein demonstrates appropriate compressibility and waveform variability. There is normal compressibility at the tibioperoneal trunk. Impression: No evidence of left femoropopliteal venous thrombosis.
[2024-11-01 01:41] VITALS: BP 129/67; PULSE 106; RESP 20; TEMP 98.3; O2SAT 99
--- NOTE | 2024-11-01 03:32 | ED.PDOC ---
History of Present Illness HPI Comments 64-year-old female complains of left leg swelling for the last 1 day. Patient had hip surgery about a week ago at [facility]. Patient has been in rehab and was just released today. Patient states that the left leg feels swollen and it is difficult to move Chief Complaint: Lower Extremity Time Seen by MD: 02:52 Primary Care Provider: [facility] Allergies: Coded Allergies: NO KNOWN ALLERGIES (Unverified , 04/05/18) Home Meds Reported Medications Methocarbamol (Methocarbamol) 500 Mg Tab, 1 TAB PO TID 10/19/24 Gabapentin (Gabapentin) 600 Mg Tab, 1 TAB PO TID 10/19/24 Diclofenac Sodium (Actinic Ker (Diclofenac Sodium) 3 % Gel, TOP 11/16/22 Acetaminophen (APAP ARTHRITIS) 650 Mg Tab, 1 TAB PO TID PRN for pain 11/16/22 Lidocaine (Ztlido) 1.8 % Pad, 1 PATCH TOP DAILY 11/16/22 Docusate Sodium (Docusate Sodium) 100 Mg Cap, 1 CAP PO BID 11/16/22 Information Source: Patient Mode of Arrival: Wheelchair Severity: Moderate Timing: Days Duration: Since onset Past Medical History PAST MEDICAL HISTORY: Denies Surgical History: Denies all surgeries Surgical History (Other): Hip surgery about 1 week ago TRUCK HOPPER History: No Pertinent TRUCK HOPPER History Family History Family History: Unknown Social History Smoker: Non-Smoker Alcohol: Denies ETOH Use Drugs: Denies Drug Use Lives In: Home Musculoskeletal: reports: joint pain, joint swelling All Other Systems: Reviewed and Negative Physical Exam General Appearance: Moderate Distress HEENT: Normal ENT Inspection, Pharynx Normal, TMs Normal Neck: Full Range of Motion, Non-Tender, Normal, Normal Inspection Respiratory: Chest Non-Tender, Lungs Clear, No Accessory Muscle Use, No Respiratory Distress, Normal Breath Sounds Cardiovascular: No Edema, No JVD, No Murmur, No Gallop, Normal Peripheral Pulses, Regular Rate/Rhythm Breast Exam: Deferred Gastrointestinal: No Organomegaly, Non Tender, No Pulsatile Mass, Normal Bowel Sounds, Soft Genitalia: Deferred Pelvic: Deferred Rectal: Deferred Extremities: Swelling, Tender Musculoskeletal : Apperance: Normal Neurologic: Alert, painter barrel II-XII nml as Tested, No Motor Deficits, Normal Affect, Normal Mood, No Sensory Deficits Cerebellar Function: Normal Reflexes: Normal Skin: Dry, Normal Color, Warm Lymphatic: No Adenopathy Was a procedure done? Was a procedure done?: No Differential Dx Considerations may include: Differential diagnosis includes but not limited to: DVT, pulmonary embolus, Bony fracture, dislocation, compartment syndrome, nerve injury, vascular injury and others X-Ray, Labs, Meds, VS Vital Signs Date Time Temp Pulse Resp B/P (MAP) Pulse Ox O2 Delivery O2 Flow Rate FiO2 11/01/24 01:41 98.3 106 20 129/67 (87) 99 98.3 11/01/24 01:41 106 20 99 Room Air 10/31/24 23:50 99.7 105 18 125/69 (87) 95 99.7 Lab Test 11/01/24 02:00 11/01/24 00:28 Range/Units Lactic Acid Level Pending White Blood Count 12.0 H 4.4-10.8 10^3/uL Red Blood Count 3.65 L 4.0-5.20 10^6/uL Hemoglobin 10.2 L 12.2-16.2 g/dL Hematocrit 31.2 L 36.0-46.0 % Mean Corpuscular Volume 85.3 80.0-100.0 fL Mean Corpuscular Hemoglobin 27.9 L 28.0-32.0 pg Mean Corpuscular Hemoglobin Concent 32.7 32.0-36.0 g/dL Red Cell Distribution Width 15.1 H 11.8-14.3 % Platelet Count 648 H 140-450 10^3/uL Mean Platelet Volume 6.7 L 6.9-10.8 fL Neutrophils (%) (Auto) 73.2 37.0-80.0 % Lymphocytes (%) (Auto) 14.6 10.0-50.0 % Monocytes (%) (Auto) 8.0 0.0-12.0 % Eosinophils (%) (Auto) 3.6 0.0-7.0 % Basophils (%) (Auto) 0.6 0.0-2.0 % Neutrophils # (Auto) 8.8 H 1.6-8.6 10 ^3/uL Lymphocytes # (Auto) 1.8 0.4-5.4 10 ^3/uL Monocytes # (Auto) 1.0 0-1.3 10 ^3/uL Eosinophils # (Auto) 0.4 0-0.8 10 ^3/uL Basophils # (Auto) 0.1 0-0.2 10 ^3/uL Nucleated Red Blood Cells 0.1 % D-Dimer, Quantitative 4.02 H 0.0-0.49 mg/L FEU Sodium Level 141 136-145 mmol/L Potassium Level 3.5 3.5-5.1 mmol/L Chloride Level 106 98-107 mmol/L Carbon Dioxide Level 27 20-31 mmol/L Anion Gap 8 5-15 Blood Urea Nitrogen 18 9-23 mg/dL Creatinine 0.63 0.550-1.02 mg/dL Glomerular Filtration Rate Calc 100 >90 mL/min BUN/Creatinine Ratio 28.6 H 10.0-20.0 Serum Glucose 111 H 74-106 mg/dL Calcium Level 9.1 8.7-10.4 mg/dL Total Bilirubin 0.3 0.2-1.0 mg/dL Aspartate Amino Transferase (AST) 20 13-40 U/L Alanine Aminotransferase (ALT) 23 7-40 U/L Alkaline Phosphatase 211 H 46-116 U/L Total Protein 7.1 5.7-8.2 g/dL Albumin 4.1 3.2-4.8 g/dL Time of 1ST Reevaluation: 02:00 Reevaluation 1ST: Unchanged Patient Education/Counseling: Diagnosis, Treatment Family Education/Counseling: No Family Present Departure 1 Departure Time of Disposition: 03:24 Impression: Primary Impression: Left hip pain Additional Impression: Leg edema, left Disposition: ADMITTED INPATIENT Admit to: Med Surg Condition: Guarded Discharged With: Self Comments Left Leg Swelling Post Hip Surgery Chief Complaint: Left leg swelling History of Present Illness: Patient is a 64-year-old female who presents with left leg swelling that started one day ago. She underwent hip surgery approximately one week ago at [facility] and was subsequently in rehabilitation. The patient was just released from rehab today. She reports difficulty moving her left leg along with the swelling. Of note, patient is refusing IV placement and IV contrast administration for CT angiogram. Review of Systems: Constitutional: Denies fever or chills Musculoskeletal: Left leg swelling and difficulty with movement Respiratory: Not specifically mentioned All other systems: Noncontributory or not specifically mentioned Past Surgical History: Recent hip surgery (1 week ago) at [facility] Physical Exam: Limited physical exam documentation available Musculoskeletal: Left leg with swelling noted Lab Results: WBC: 12, 000 (Elevated) D-dimer: 4.02 (Significantly elevated) Other labs reported as unremarkable Imaging and Other Relevant Results: DVT study of left leg: Negative Medical Decision Making: Summary Statement: 64-year-old female with recent hip surgery presenting with acute left leg swelling and elevated D-dimer, concerning for possible pulmonary embolism. Problem List: 1. Left leg swelling, 2. Post-operative status (hip surgery), 3. Elevated D-dimer, 4. Suspected pulmonary embolism Differential Diagnosis: 1. Pulmonary embolism, 2. Deep vein thrombosis (though initial study negative), 3. Post-operative swelling, 4. Cellulitis, 5. [place] ma ED Course: Patient evaluated for leg swelling. Labs revealed elevated D-dimer. DVT study negative. Patient refusing IV contrast for CT pulmonary angiogram. Decision made to admit for VQ scan in the morning. Assessment and Plan: 1. Left Leg Swelling with Suspected Pulmonary Embolism: - Elevated D-dimer concerning for PE despite negative DVT study - Patient refusing CT pulmonary angiogram with contrast - Plan for admission under hospitalist service - Will obtain VQ scan in the morning for PE evaluation 2. Post-operative Status: - Recent hip surgery one week ago - Will continue post-operative care as recommended 3. Disposition: - Admission to hospital under hospitalist service - Pending VQ scan and further workup Billing Information: ICD-10: R60.0 - Localized edema ICD-10: Z98.89 - Other specified postprocedural states ICD-10: R79.89 - Other specified abnormal findings of blood chemistry (elevated D-dimer) ICD-10: R59.9 - Suspected pulmonary embolism Critical Care Note Critical Care Time?: No Stability Stability form required: No Heart Score Heart Score: Heart Score Response (Comments) Value History N/A 0 EKG N/A 0 Age N/A 0 Risk Factors N/A (64-year-old female) 0 Troponin N/A 0 Total 0 DEMETRIA VILLALOBOS MD November 01, 2024 03:32
== END 2024-11-01 04:07 | disposition left against medical advice (07) ==
LOC: ER 22:38
DX: M25.552 Pain in left hip (principal); R60.9 Edema, unspecified; Z98.890 Other specified postprocedural states; Z79.899 Other long term (current) drug therapy
CPT/HCPCS: 36415; 80053; 83605; 85025; 85379; 87040; 93971

== ENCOUNTER 2024-11-01 14:26 | Inpatient (IN) | payer MEDICAID ==
[~2024-11-01] VITALS: Ht 177.8 cm; Wt 83.3 kg
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
[2024-11-01 16:13] LABS: Basophils # (auto) 0.1 10 ^3/uL (0-0.2); Basophils % (auto) 0.7 % (0.0-2.0); Eosinophils # (auto) 0.4 10 ^3/uL (0-0.8); Eosinophils % (auto) 3.1 % (0.0-7.0); Hematocrit 29.9 % (36.0-46.0); Hemoglobin 9.9 g/dL (12.2-16.2); Lymphocytes # (auto) 1.3 10 ^3/uL (0.4-5.4); Lymphocytes % (auto) 11.2 % (10.0-50.0); Mean Corpuscular Hemoglobin 27.9 pg (28.0-32.0); Mean Corpuscular Hgb Conc. 33.1 g/dL (32.0-36.0); Mean Corpuscular Volume 84.1 fL (80.0-100.0); Monocytes # (auto) 0.8 10 ^3/uL (0-1.3); Monocytes % (auto) 6.6 % (0.0-12.0); Neutrophils # (auto) 9.3 10 ^3/uL (1.6-8.6); Neutrophils % (auto) 78.4 % (37.0-80.0); Platelet Count (auto) 679 10^3/uL (140-450); Red Blood Cells 3.55 10^6/uL (4.0-5.20); Red Cell Distribution Width 14.5 % (11.8-14.3); White Blood Cell 11.8 10^3/uL (4.4-10.8)
[2024-11-01 16:27] LABS: Alanine Aminotransferase 25 U/L (7-40); Alkaline Phosphatase 198 U/L (46-116); Anion Gap 7 (5-15); Aspartate Aminotransferase 25 U/L (13-40); BUN/Creatinine Ratio 26.6 (10.0-20.0); Bilirubin, Total 0.4 mg/dL (0.2-1.0); Blood Urea Nitrogen 17 mg/dL (9-23); Calcium 9.8 mg/dL (8.7-10.4); Carbon Dioxide 29 mmol/L (20-31); Chloride 105 mmol/L (98-107); Glucose 118 mg/dL (74-106); Potassium 3.8 mmol/L (3.5-5.1); Sodium 141 mmol/L (136-145); Total Protein 6.9 g/dL (5.7-8.2)
[2024-11-01 16:37] LABS: CRP High Sensitivity 7.74 mg/dL (<1.0)
[2024-11-01 16:50] LABS: Erythrocyte Sedimentation Rate 84 mm/hr (0-20)
[2024-11-01] MEDS ORDERED: ONDANSETRON HCL 4 MG/2 ML VIAL IV PRN (17:15)
--- NOTE | 2024-11-01 17:38 | DVHHP2 ---
History of Present Illness Reason for Visit: Left lower extremity swelling and pain History of Present Illness Sydnie Chapman is a 64-year-old female with past medical history of degenerative joint disease of the hip and left total hip arthroplasty who presents to the ED with left hip pain x 3-4 months who recently had a left hip replacement last week Wednesday (10/23/24). Patient's Can is at the chair side. Patient reports that she left AMA yesterday from [facility] with a right upper arm IV in place. She then checked herself into a fdc facility and left AMA yesterday. She is now here to finish her course of antibiotics. Patient denies any recent trauma or injury, recent travels, recent sick contacts, chest pain, shortness of breath, fever, chills, abdominal pain, nausea, vomiting, or diarrhea. Past Medical History Degenerative joint disease of the hip Past Surgical History: Total hip replacement Family History: None Smoke: <1 pack per day ALCOHOL: occassional Drugs: Marijuana Lives: with Family Domestic Violence: Neg Review of Systems Musculoskeletal: leg pain (And swelling) Allergies: Coded Allergies: NO KNOWN ALLERGIES (Unverified , 04/05/18) Exam Vital Signs Vital Signs Date Time Temp Pulse Resp B/P (MAP) Pulse Ox O2 Delivery O2 Flow Rate FiO2 11/01/24 15:18 98.4 87 18 135/73 (93) 98 98.4 General Appearance: Alert, Oriented X3, Cooperative, No acute distress HEENT: Atraumatic, PERRLA, EOMI, Mucous membr. moist/pink Respiratory: Normal air movement Cardiovascular: Regular rate, Normal S1, Normal S2 Abdominal: Normal bowel sounds, Soft Extremities: No clubbing, No cyanosis Neuro: Normal speech, Normal tone, Sensation intact Psych/Mental Status: Mental status NL Labs/Xrays Labs Test 11/01/24 15:55 Range/Units White Blood Count 11.8 H 4.4-10.8 10^3/uL Red Blood Count 3.55 L 4.0-5.20 10^6/uL Hemoglobin 9.9 L 12.2-16.2 g/dL Hematocrit 29.9 L 36.0-46.0 % Mean Corpuscular Volume 84.1 80.0-100.0 fL Mean Corpuscular Hemoglobin 27.9 L 28.0-32.0 pg Mean Corpuscular Hemoglobin Concent 33.1 32.0-36.0 g/dL Red Cell Distribution Width 14.5 H 11.8-14.3 % Platelet Count 679 H 140-450 10^3/uL Mean Platelet Volume 6.8 L 6.9-10.8 fL Neutrophils (%) (Auto) 78.4 37.0-80.0 % Lymphocytes (%) (Auto) 11.2 10.0-50.0 % Monocytes (%) (Auto) 6.6 0.0-12.0 % Eosinophils (%) (Auto) 3.1 0.0-7.0 % Basophils (%) (Auto) 0.7 0.0-2.0 % Neutrophils # (Auto) 9.3 H 1.6-8.6 10 ^3/uL Lymphocytes # (Auto) 1.3 0.4-5.4 10 ^3/uL Monocytes # (Auto) 0.8 0-1.3 10 ^3/uL Eosinophils # (Auto) 0.4 0-0.8 10 ^3/uL Basophils # (Auto) 0.1 0-0.2 10 ^3/uL Nucleated Red Blood Cells 0.0 % Erythrocyte Sedimentation Rate 84 H 0-20 mm/hr Sodium Level 141 136-145 mmol/L Potassium Level 3.8 3.5-5.1 mmol/L Chloride Level 105 98-107 mmol/L Carbon Dioxide Level 29 20-31 mmol/L Anion Gap 7 5-15 Blood Urea Nitrogen 17 9-23 mg/dL Creatinine 0.64 0.550-1.02 mg/dL Glomerular Filtration Rate Calc 99 >90 mL/min BUN/Creatinine Ratio 26.6 H 10.0-20.0 Serum Glucose 118 H 74-106 mg/dL Lactic Acid Level 1.0 0.4-2.0 mmol/L Calcium Level 9.8 8.7-10.4 mg/dL Total Bilirubin 0.4 0.2-1.0 mg/dL Aspartate Amino Transferase (AST) 25 13-40 U/L Alanine Aminotransferase (ALT) 25 7-40 U/L Alkaline Phosphatase 198 H 46-116 U/L C-Reactive Protein High Sensitivity 7.74 H <1.0 mg/dL B-Type Natriuretic Peptide 52.01 0-100 pg/mL Total Protein 6.9 5.7-8.2 g/dL Albumin 4.0 3.2-4.8 g/dL Left lower extremity venous duplex Clinical History: swelling Comparison: None Technique: Duplex Doppler evaluation of the deep venous system of the left lower extremity from the common femoral vein to the popliteal vein including color Doppler and spectral/pulsed waveform analysis was performed. Findings: The common femoral vein demonstrates appropriate compressibility and waveform variability. There is compressibility/patency of the great saphenous vein at the proximal thigh. The femoral vein demonstrates appropriate compressibility and waveform variability. The deep femoral vein demonstrates appropriate compressibility and waveform variability. The popliteal vein demonstrates appropriate compressibility and waveform variability. There is normal compressibility at the tibioperoneal trunk. Impression: No evidence of left femoropopliteal venous thrombosis. Assessment/Plan Assessment/Plan Assessment Left lower extremity pain status post total left hip arthroplasty 10/23/24 Tobacco use Alcohol use Substance use History of degenerative joint disease in the left hip Plan Admit to med surge Antiemetics Pain management Type and screen Bilateral ultrasound venous noted UA ordered Type and screen EKG ESR Lactic CRP BNP Diet Home medications reconciled DVT prophylaxis-Lovenox PUD prophylaxis-not indicated no history of GERD or GI bleed Discussed plan of care with patient, patient's spouse, and nurse Counseled patient on cessation of tobacco use Counseled patient on cessation of alcohol use Counseled patient on substance use Patient received Ancef 1 g Q8H on prior admission we will continue Plan discussed with: Patient, Spouse My Orders Orders - AMANDA POTTS Procedure Category Date Status Time Admit ADMIT 11/01/24 Transmitted 17:15 Allergies ZOHREH 11/01/24 Transmitted 17:15 Hydrocodone-Acet PHA 11/01/24 Transmitted 5/325mg Tab (Merkel 17:15 Ondansetron Hcl PHA 11/01/24 Transmitted (Zofran) 17:15 Enoxaparin Sodium PHA 11/02/24 Transmitted (Lovenox) 10:00 Complete Blood Count LAB 11/02/24 Verified 04:00 Comprehensive LAB 11/02/24 Verified Metabolic Panel 04:00 Cardiac DIET 11/01/24 Transmitted Diet-2gna,Lofat,Lochol Dinner Acetaminophen Tablet PHA 11/01/24 Transmitted (Tylenol Tablet) 17:15 Bilat Lower Dvt US 11/01/24 Transmitted 17:15 Methocarbamol PHA 11/01/24 Verified (Robaxin) 22:00 (Nf) Gabapentin PHA 11/01/24 Verified 22:00 (Nf) Lidocaine PHA 11/02/24 Verified (Ztlido) 10:00 Date of Service: November 01, 2024 Billing Provider: AMANDA POTTS Common Visit Codes: [id number] INP/OBS CARE (HIGH) AMANDA POTTS November 01, 2024 17:38
[2024-11-01 22:00] VITALS: BP 134/89; PULSE 90; RESP 18; TEMP 98.3; O2SAT 99
[2024-11-01] MEDS: METHOCARBAMOL 500 MG TAB PO SCH (22:31)
[2024-11-01] MEDS: ceFAZolin 1GM/50ML 50 ML IV SCH (22:31)
[2024-11-01] MEDS: HYDROcodone-ACET 5/325MG TAB PO PRN (22:31)
[2024-11-01] MEDS: GABAPENTIN 300 MG CAP PO SCH (22:32)
[2024-11-01 23:22] VITALS: BP 134/89; PULSE 90; RESP 18; TEMP 98.3
[2024-11-02 05:00] VITALS: BP 119/64; PULSE 94; RESP 19; TEMP 97.8; O2SAT 98
[2024-11-02 07:32] LABS: Basophils # (auto) 0 10 ^3/uL (0-0.2); Basophils % (auto) 0.7 % (0.0-2.0); Eosinophils # (auto) 0.4 10 ^3/uL (0-0.8); Eosinophils % (auto) 4.9 % (0.0-7.0); Hematocrit 29.4 % (36.0-46.0); Hemoglobin 9.8 g/dL (12.2-16.2); Lymphocytes # (auto) 1.1 10 ^3/uL (0.4-5.4); Lymphocytes % (auto) 14.6 % (10.0-50.0); Mean Corpuscular Hemoglobin 27.8 pg (28.0-32.0); Mean Corpuscular Hgb Conc. 33.2 g/dL (32.0-36.0); Mean Corpuscular Volume 83.7 fL (80.0-100.0); Monocytes # (auto) 0.6 10 ^3/uL (0-1.3); Monocytes % (auto) 7.6 % (0.0-12.0); Neutrophils # (auto) 5.4 10 ^3/uL (1.6-8.6); Neutrophils % (auto) 72.2 % (37.0-80.0); Nucleated Red Blood Cells % 0.1 %; Platelet Count (auto) 636 10^3/uL (140-450); Red Blood Cells 3.51 10^6/uL (4.0-5.20); Red Cell Distribution Width 14.6 % (11.8-14.3); White Blood Cell 7.5 10^3/uL (4.4-10.8)
[2024-11-02 08:02] LABS: Alanine Aminotransferase 14 U/L (7-40); Albumin 3.3 g/dL (3.2-4.8); Anion Gap 8 (5-15); Aspartate Aminotransferase 16 U/L (13-40); BUN/Creatinine Ratio 19.7 (10.0-20.0); Blood Urea Nitrogen 12 mg/dL (9-23); Carbon Dioxide 29 mmol/L (20-31); Chloride 105 mmol/L (98-107); Glucose 92 mg/dL (74-106); Sodium 142 mmol/L (136-145); Total Protein 5.9 g/dL (5.7-8.2)
[2024-11-02 08:06] LABS: Alkaline Phosphatase 161 U/L (46-116); Bilirubin, Total 0.3 mg/dL (0.2-1.0); Calcium 8.5 mg/dL (8.7-10.4); Potassium 3.4 mmol/L (3.5-5.1)
[2024-11-02 09:00] VITALS: BP 113/57; PULSE 94; RESP 15; TEMP 99.1; O2SAT 93
[2024-11-02] MEDS: LIDOCAINE TOP SCH (10:00)
[2024-11-02] MEDS: ENOXAPARIN SOD 40 MG/0.4 ML SYRINGE SC SCH (10:24)
[2024-11-02 13:00] VITALS: BP 119/65; PULSE 90; RESP 16; TEMP 99.2; O2SAT 96
--- NOTE | 2024-11-02 14:42 | DVH ---
EXAM: XY L HIP COMPLETE XRAY CLINICAL INDICATION: sp Left BRIDGET TECHNIQUE: XY L HIP COMPLETE XRAY Comparison: XY L HIP COMPLETE XRAY on DOS: 10/19/24 FINDINGS/IMPRESSION: There is no evidence of acute fracture or dislocation. Left hip arthroplasties The alignment is anatomical. There is no radiopaque foreign body.
[2024-11-02 17:00] VITALS: BP 139/71; PULSE 85; RESP 16; TEMP 98.7; O2SAT 98
--- NOTE | 2024-11-02 17:32 | DVHPN2 ---
Subjective 64 year old female s/p left hip surgery 10/23, came back from SNF because she didn't like it there L hip swollen c/o pain NO DVT Changes from previous H/P or p: Changes Musculoskeletal: leg pain (And swelling) Objective Vitals Vital Signs Date Time Temp Pulse Resp B/P (MAP) Pulse Ox O2 Delivery O2 Flow Rate FiO2 11/02/24 17:00 98.7 85 16 139/71 (93) 98 98.7 11/02/24 08:00 Room Air* 0 21 Intake/Output Intake and Output 11/02/24 06:59 Intake Total 640 ml Balance 640 ml Intake Oral 640 ml # Voids 2 # Bowel Movements 1 General Appearance: Alert, Oriented X3, Cooperative, No acute distress Lungs: Clear to auscultation, Normal air movement Cardiovascular: Regular rate, Normal S1, Normal S2 Abdomen: Normal bowel sounds, Soft, No tenderness Extremities: Other (L leg edema) Medications Current Medications Medications Dose Ordered Sig/Maddi Route Start Time Stop Time Status Last Admin Dose Admin Acetaminophen/ Hydrocodone Bitart 1 tab Q4HP PRN PO 11/01/24 17:15 11/02/24 10:25 1 TAB Ondansetron HCl 4 mg Q4HP PRN IV 11/01/24 17:15 Enoxaparin Sodium 40 mg DAILY SC 11/02/24 10:00 11/02/24 10:24 40 MG Acetaminophen 650 mg Q6HP PRN PO 11/01/24 17:15 Methocarbamol 500 mg TID PO 11/01/24 22:00 11/02/24 15:57 500 MG Gabapentin 600 mg TID PO 11/01/24 22:00 11/02/24 15:57 600 MG Patient Own Medication 1 patch DAILY TOP 11/02/24 10:00 Cefazolin Sodium 50 ml @ 100 mls/hr Q8H IV 11/01/24 18:38 11/02/24 13:23 100 MLS/HR Laboratory Results Laboratory Tests 11/02/24 06:20 Chemistry Test 11/02/24 06:20 Albumin 3.3 g/dL (3.2-4.8) Calcium Level 8.5 mg/dL (8.7-10.4) L Total Protein 5.9 g/dL (5.7-8.2) LFT Test 11/02/24 06:20 Alanine Aminotransferase (ALT) 14 U/L (7-40) Alkaline Phosphatase 161 U/L (46-116) H Aspartate Amino Transferase (AST) 16 U/L (13-40) Total Bilirubin 0.3 mg/dL (0.2-1.0) Microbiology Microbiology Date/Time Source Procedure Growth Status 11/02/24 06:19 Nose MRSA Screen - Final Complete Assessment/Plan Assessment/Plan L hip pain, swelling NO DVT s/p left hip arthroplasty 10/23/24 Anemia PLAN: Cefazolin Ortho consult Lovenox [place] prn Monitor PT eval Plan discussed with: Patient My Orders Orders - CEASAR LOVETT MD Procedure Category Date Status Time * Orthopedic Consult CONS 11/02/24 Transmitted 12:22 Date of Service: November 02, 2024 Billing Provider: CEASAR LOVETT MD Common Visit Codes: [id number] INP/OBS CARE(HIGH) CEASAR LOVETT MD November 02, 2024 17:32
[2024-11-02] MEDS: POTASSIUM CHL 20 Meq TABLET PO ONE (18:31)
[2024-11-02 21:00] VITALS: BP 127/72; PULSE 89; RESP 17; TEMP 99.2; O2SAT 95
[2024-11-03] VITALS (8 sets, daily range): BP systolic 122–148; BP diastolic 66–86; PULSE 77–92; RESP 16–18; TEMP 97.9–99; O2SAT 91–97
--- NOTE | 2024-11-03 10:58 | DVHPN2 ---
Progress Note Date Seen: November 03, 2024 Medical Necessity Reason Pt with a Central, PICC or Fol: No Subjective Patient reports: No new complaints, Feels better Objective vital signs Vital Sign Date Time Temp Pulse Resp B/P (MAP) Pulse Ox O2 Delivery O2 Flow Rate FiO2 11/03/24 09:23 97.9 92 17 134/68 (90) 91 97.9 11/03/24 08:00 Room Air* 0 21 Total Intake and Output 11/02/24 11/02/24 11/03/24 15:00 23:00 07:00 Intake Total 290 ml 650 ml Balance 290 ml 650 ml medications Current Medications Medications Dose Ordered Sig/Maddi Route Start Time Stop Time Status Last Admin Dose Admin Acetaminophen/ Hydrocodone Bitart 1 tab Q4HP PRN PO 11/01/24 17:15 11/03/24 03:37 1 TAB Ondansetron HCl 4 mg Q4HP PRN IV 11/01/24 17:15 Enoxaparin Sodium 40 mg DAILY SC 11/02/24 10:00 11/03/24 09:49 40 MG Acetaminophen 650 mg Q6HP PRN PO 11/01/24 17:15 Methocarbamol 500 mg TID PO 11/01/24 22:00 11/03/24 06:08 500 MG Gabapentin 600 mg TID PO 11/01/24 22:00 11/03/24 06:08 600 MG Patient Own Medication 1 patch DAILY TOP 11/02/24 10:00 Cefazolin Sodium 50 ml @ 100 mls/hr Q8H IV 11/01/24 18:38 11/03/24 09:49 100 MLS/HR Examination: GENERAL:Normal, MSK:Normal laboratory and microbiology Laboratory Tests 11/02/24 06:20 Test 11/02/24 06:20 Range/Units Serum Glucose 92 74-106 mg/dL Microbiology Date/Time Source Procedure Growth Status 11/02/24 06:19 Nose MRSA Screen - Final Complete Problem List/Assessment/Plan Problem List/Assessment/Plan 64 yo F sp revision Left BRIDGET 1. WBAT with walker 2. PT 3. change dressing as needed 4. fu in [facility] next week 5. dvt ppx 6. dc planning for home with home health/nursing Plan discussed with: Patient My Orders My Orders Orders - ROBBIN CLAY MD Procedure Category Date Status Time Drug Screen LAB 11/02/24 Logged 13:07 L Hip Complete Xray XY 11/02/24 Resulted 13:07 ROBBIN CLAY MD November 03, 2024 10:58
--- NOTE | 2024-11-03 11:50 | DVHPN2 ---
Subjective No new complaints Changes from previous H/P or p: Changes Musculoskeletal: leg pain (And swelling) Objective Vitals Vital Signs Date Time Temp Pulse Resp B/P (MAP) Pulse Ox O2 Delivery O2 Flow Rate FiO2 11/03/24 09:23 97.9 92 17 134/68 (90) 91 97.9 11/03/24 08:00 Room Air* 0 21 Intake/Output Intake and Output 11/03/24 07:00 Intake Total 940 ml Balance 940 ml Intake Oral 840 ml IV Total 100 ml # Voids 5 # Bowel Movements 1 General Appearance: Alert, Oriented X3, Cooperative, No acute distress Lungs: Clear to auscultation, Normal air movement Cardiovascular: Regular rate, Normal S1, Normal S2 Abdomen: Normal bowel sounds, Soft, No tenderness Extremities: Other (L leg edema) Medications Current Medications Medications Dose Ordered Sig/Maddi Route Start Time Stop Time Status Last Admin Dose Admin Acetaminophen/ Hydrocodone Bitart 1 tab Q4HP PRN PO 11/01/24 17:15 11/03/24 03:37 1 TAB Ondansetron HCl 4 mg Q4HP PRN IV 11/01/24 17:15 Enoxaparin Sodium 40 mg DAILY SC 11/02/24 10:00 11/03/24 09:49 40 MG Acetaminophen 650 mg Q6HP PRN PO 11/01/24 17:15 Methocarbamol 500 mg TID PO 11/01/24 22:00 11/03/24 06:08 500 MG Gabapentin 600 mg TID PO 11/01/24 22:00 11/03/24 06:08 600 MG Patient Own Medication 1 patch DAILY TOP 11/02/24 10:00 Cefazolin Sodium 50 ml @ 100 mls/hr Q8H IV 11/01/24 18:38 11/03/24 09:49 100 MLS/HR Laboratory Results Laboratory Tests 11/02/24 06:20 Microbiology Microbiology Date/Time Source Procedure Growth Status 11/02/24 06:19 Nose MRSA Screen - Final Complete Assessment/Plan Assessment/Plan L hip pain, swelling NO DVT s/p left hip arthroplasty 10/23/24 Anemia PLAN: Cefazolin Ortho consult Lovenox [place] prn Monitor PT eval . 11/03/2024: Start physical therapy Continue cefazolin Orthopedic surgery saw the patient recommended to start ambulating and weight- bearing as tolerated [place] p.r.n. for the pain Lovenox for DVT prophylaxis Plan discussed with: Patient My Orders Orders - CEASAR LOVETT MD Procedure Category Date Status Time * Orthopedic Consult CONS 11/02/24 Transmitted 12:22 Pt Request For Service PT 11/02/24 Logged 17:29 Date of Service: November 03, 2024 Billing Provider: CEASAR LOVETT MD Common Visit Codes: [id number] INP/OBS CARE(HIGH) CEASAR LOVETT MD November 03, 2024 11:50
[2024-11-04 01:55] VITALS: PULSE 77
[2024-11-04 05:08] VITALS: BP 114/69; PULSE 87; RESP 17; TEMP 98.8; O2SAT 94
[2024-11-04 07:26] LABS: Basophils # (auto) 0 10 ^3/uL (0-0.2); Basophils % (auto) 0.6 % (0.0-2.0); Eosinophils # (auto) 0.1 10 ^3/uL (0-0.8); Eosinophils % (auto) 1.8 % (0.0-7.0); Hematocrit 31.4 % (36.0-46.0); Hemoglobin 10.4 g/dL (12.2-16.2); Lymphocytes # (auto) 1.6 10 ^3/uL (0.4-5.4); Lymphocytes % (auto) 20.3 % (10.0-50.0); Mean Corpuscular Hemoglobin 27.6 pg (28.0-32.0); Mean Corpuscular Hgb Conc. 33.2 g/dL (32.0-36.0); Mean Corpuscular Volume 83.2 fL (80.0-100.0); Monocytes % (auto) 12.7 % (0.0-12.0); Neutrophils # (auto) 4.9 10 ^3/uL (1.6-8.6); Neutrophils % (auto) 64.6 % (37.0-80.0); Nucleated Red Blood Cells % 0.1 %; Platelet Count (auto) 693 10^3/uL (140-450); Red Blood Cells 3.78 10^6/uL (4.0-5.20); Red Cell Distribution Width 14.7 % (11.8-14.3); White Blood Cell 7.7 10^3/uL (4.4-10.8)
[2024-11-04 07:28] LABS: Anion Gap 10 (5-15); Calcium 9.1 mg/dL (8.7-10.4); Carbon Dioxide 27 mmol/L (20-31); Chloride 102 mmol/L (98-107); Sodium 139 mmol/L (136-145)
[2024-11-04 07:34] LABS: BUN/Creatinine Ratio 15.2 (10.0-20.0); Blood Urea Nitrogen 10 mg/dL (9-23); Glucose 96 mg/dL (74-106)
[2024-11-04 07:35] LABS: Magnesium 2.1 mg/dL (1.6-2.6)
[2024-11-04 07:36] LABS: Potassium 3.4 mmol/L (3.5-5.1)
[2024-11-04 08:43] VITALS: BP 131/80; PULSE 85; RESP 20; TEMP 97.7; O2SAT 96
[2024-11-04] MEDS: POTASSIUM CHL 20 Meq TABLET PO ONE (12:30)
[2024-11-04 12:54] VITALS: BP 144/87; PULSE 78; RESP 18; TEMP 97.5; O2SAT 93
--- NOTE | 2024-11-04 16:42 | DVHPN2 ---
Subjective No new complaints Changes from previous H/P or p: Changes Musculoskeletal: leg pain (And swelling) Objective Vitals Vital Signs Date Time Temp Pulse Resp B/P (MAP) Pulse Ox O2 Delivery O2 Flow Rate FiO2 11/04/24 12:54 97.5 78 18 144/87 (106) 93 97.5 11/04/24 08:00 Room Air* 0 21 Intake/Output Intake and Output 11/04/24 07:00 Intake Total 1440 ml Output Total 610 ml Balance 830 ml Intake Oral 1240 ml IV Total 200 ml Output Urine Total 610 ml # Voids 5 General Appearance: Alert, Oriented X3, Cooperative, No acute distress Lungs: Clear to auscultation, Normal air movement Cardiovascular: Regular rate, Normal S1, Normal S2 Abdomen: Normal bowel sounds, Soft, No tenderness Extremities: Other (L leg edema) Medications Current Medications Medications Dose Ordered Sig/Maddi Route Start Time Stop Time Status Last Admin Dose Admin Acetaminophen/ Hydrocodone Bitart 1 tab Q4HP PRN PO 11/01/24 17:15 11/04/24 10:22 1 TAB Ondansetron HCl 4 mg Q4HP PRN IV 11/01/24 17:15 Enoxaparin Sodium 40 mg DAILY SC 11/02/24 10:00 11/04/24 10:19 40 MG Acetaminophen 650 mg Q6HP PRN PO 11/01/24 17:15 Methocarbamol 500 mg TID PO 11/01/24 22:00 11/04/24 14:31 500 MG Gabapentin 600 mg TID PO 11/01/24 22:00 11/04/24 14:30 600 MG Patient Own Medication 1 patch DAILY TOP 11/02/24 10:00 Cefazolin Sodium 50 ml @ 100 mls/hr Q8H IV 11/01/24 18:38 11/04/24 10:27 100 MLS/HR Laboratory Results Laboratory Tests 11/04/24 06:28 Chemistry Test 11/04/24 06:28 Calcium Level 9.1 mg/dL (8.7-10.4) Magnesium Level 2.1 mg/dL (1.6-2.6) Microbiology Microbiology Date/Time Source Procedure Growth Status 11/02/24 06:19 Nose MRSA Screen - Final Complete Assessment/Plan Assessment/Plan L hip pain, swelling NO DVT s/p left hip arthroplasty 10/23/24 Anemia PLAN: Cefazolin Ortho consult Lovenox [place] prn Monitor PT eval . 11/03/2024: Start physical therapy Continue cefazolin Orthopedic surgery saw the patient recommended to start ambulating and weight- bearing as tolerated [place] p.r.n. for the pain Lovenox for DVT prophylaxis 11/04/24: Continue current management Pain management as needed Physical therapy Ambulate as tolerated [place] for pain Cefazolin Hypokalemia: Replace Lovenox for DVT prophylaxis The rest of the management will depend on the hospital course Plan discussed with: Patient My Orders Orders - CEASAR LOVETT MD Procedure Category Date Status Time Dietary NOTICE 11/04/24 Transmitted Recommendations 08:11 Date of Service: November 04, 2024 Billing Provider: CEASAR LOVETT MD Common Visit Codes: [id number] INP/OBS CARE(HIGH) CEASAR LOVETT MD November 04, 2024 16:42
[2024-11-04 17:00] VITALS: BP 150/85; PULSE 76; RESP 18; TEMP 97.4; O2SAT 95
[2024-11-04 20:59] VITALS: BP 129/66; PULSE 85; RESP 16; TEMP 99; O2SAT 92
[2024-11-05] MEDS: ACETAMINOPHEN 325 MG TAB PO PRN (00:05)
[2024-11-05 00:55] VITALS: BP 158/86; PULSE 86; RESP 17; TEMP 100.2; O2SAT 94
[2024-11-05 04:39] VITALS: BP 149/80; PULSE 84; RESP 18; TEMP 99.8; O2SAT 93
[2024-11-05 07:33] LABS: Anion Gap 10 (5-15); Carbon Dioxide 26 mmol/L (20-31); Chloride 100 mmol/L (98-107); Potassium 3.5 mmol/L (3.5-5.1); Sodium 136 mmol/L (136-145)
[2024-11-05 07:39] LABS: BUN/Creatinine Ratio 12.7 (10.0-20.0); Glucose 102 mg/dL (74-106)
[2024-11-05 07:44] LABS: Blood Urea Nitrogen 8 mg/dL (9-23); Calcium 8.4 mg/dL (8.7-10.4)
[2024-11-05 08:53] VITALS: BP 128/72; PULSE 86; RESP 18; TEMP 97.2; O2SAT 96
--- NOTE | 2024-11-05 12:16 | DVHPN2 ---
Subjective No new complaints Ambulated with PT Changes from previous H/P or p: Changes Musculoskeletal: leg pain (And swelling) Objective Vitals Vital Signs Date Time Temp Pulse Resp B/P (MAP) Pulse Ox O2 Delivery O2 Flow Rate FiO2 11/05/24 08:53 97.2 86 18 128/72 (90) 96 97.2 11/04/24 20:00 Room Air* 0 21 Intake/Output Intake and Output 11/05/24 07:00 Intake Total 750 ml Balance 750 ml Intake Oral 650 ml IV Total 100 ml # Voids 4 # Bowel Movements 2 General Appearance: Alert, Oriented X3, Cooperative, No acute distress Lungs: Clear to auscultation, Normal air movement Cardiovascular: Regular rate, Normal S1, Normal S2 Abdomen: Normal bowel sounds, Soft, No tenderness Extremities: Other (L leg edema) Medications Current Medications Medications Dose Ordered Sig/Maddi Route Start Time Stop Time Status Last Admin Dose Admin Acetaminophen/ Hydrocodone Bitart 1 tab Q4HP PRN PO 11/01/24 17:15 11/05/24 10:41 1 TAB Ondansetron HCl 4 mg Q4HP PRN IV 11/01/24 17:15 Enoxaparin Sodium 40 mg DAILY SC 11/02/24 10:00 11/05/24 10:42 40 MG Acetaminophen 650 mg Q6HP PRN PO 11/01/24 17:15 11/05/24 00:05 650 MG Methocarbamol 500 mg TID PO 11/01/24 22:00 11/05/24 05:39 500 MG Gabapentin 600 mg TID PO 11/01/24 22:00 11/05/24 05:39 600 MG Patient Own Medication 1 patch DAILY TOP 11/02/24 10:00 Cefazolin Sodium 50 ml @ 100 mls/hr Q8H IV 11/01/24 18:38 11/05/24 10:42 100 MLS/HR Laboratory Results Laboratory Tests 11/04/24 06:28 11/05/24 06:04 Chemistry Test 11/05/24 06:04 Calcium Level 8.4 mg/dL (8.7-10.4) L Microbiology Microbiology Date/Time Source Procedure Growth Status 11/02/24 06:19 Nose MRSA Screen - Final Complete Assessment/Plan Assessment/Plan L hip pain, swelling NO DVT s/p left hip arthroplasty 5/12/25 Anemia PLAN: Cefazolin Ortho consult Lovenox [place] prn Monitor PT eval . 11/03/2024: Start physical therapy Continue cefazolin Orthopedic surgery saw the patient recommended to start ambulating and weight- bearing as tolerated [place] p.r.n. for the pain Lovenox for DVT prophylaxis 11/04/24: Continue current management Pain management as needed Physical therapy Ambulate as tolerated [place] for pain Cefazolin Hypokalemia: Replace Lovenox for DVT prophylaxis The rest of the management will depend on the hospital course 11/05/2024: Continue physical therapy Out of bed as tolerated Pain management as needed Lovenox for DVT prophylaxis Monitor closely Plan discussed with: Patient Date of Service: November 05, 2024 Billing Provider: CEASAR LOVETT MD Common Visit Codes: [id number] INP/OBS CARE(HIGH) CEASAR LOVETT MD November 05, 2024 12:16
[2024-11-05 13:00] VITALS: BP_SYST 117; BP_SYST 121; BP_DIAS 60; BP_DIAS 78; PULSE 69; PULSE 81; RESP 16; RESP 18; TEMP 97.3; O2SAT 93; O2SAT 97
[2024-11-05 16:59] VITALS: BP 111/65; PULSE 93; RESP 16; TEMP 98; O2SAT 96
[2024-11-05 21:00] VITALS: BP 127/73; PULSE 85; RESP 17; TEMP 98; O2SAT 92
[2024-11-06 05:00] VITALS: BP_SYST 156; PULSE 79; RESP 20; TEMP 98.4; O2SAT 98
[2024-11-06 08:00] VITALS: PULSE 72; RESP 18; O2SAT 97
--- NOTE | 2024-11-06 11:44 | DVHPN2 ---
Subjective No new complaints Ambulated with PT Changes from previous H/P or p: Changes Musculoskeletal: leg pain (And swelling) Objective Vitals Vital Signs Date Time Temp Pulse Resp B/P (MAP) Pulse Ox O2 Delivery O2 Flow Rate FiO2 11/06/24 08:00 72 18 97 Room Air* 0 21 11/06/24 05:00 98.4 156/ 98.4 Intake/Output Intake and Output 11/06/24 07:00 Intake Total 1300 ml Balance 1300 ml Intake Oral 1200 ml IV Total 100 ml # Voids 6 General Appearance: Alert, Oriented X3, Cooperative, No acute distress Lungs: Clear to auscultation, Normal air movement Cardiovascular: Regular rate, Normal S1, Normal S2 Abdomen: Normal bowel sounds, Soft, No tenderness Extremities: Other (L leg edema) Medications Current Medications Medications Dose Ordered Sig/Maddi Route Start Time Stop Time Status Last Admin Dose Admin Acetaminophen/ Hydrocodone Bitart 1 tab Q4HP PRN PO 11/01/24 17:15 11/06/24 06:31 1 TAB Ondansetron HCl 4 mg Q4HP PRN IV 11/01/24 17:15 Enoxaparin Sodium 40 mg DAILY SC 11/02/24 10:00 11/05/24 10:42 40 MG Acetaminophen 650 mg Q6HP PRN PO 11/01/24 17:15 11/05/24 00:05 650 MG Methocarbamol 500 mg TID PO 11/01/24 22:00 11/06/24 06:18 500 MG Gabapentin 600 mg TID PO 11/01/24 22:00 11/06/24 06:18 600 MG Patient Own Medication 1 patch DAILY TOP 11/02/24 10:00 Cefazolin Sodium 50 ml @ 100 mls/hr Q8H IV 11/01/24 18:38 11/06/24 10:17 100 MLS/HR Laboratory Results Laboratory Tests 11/04/24 06:28 11/05/24 06:04 Microbiology Microbiology Date/Time Source Procedure Growth Status 11/02/24 06:19 Nose MRSA Screen - Final Complete Assessment/Plan Assessment/Plan L hip pain, swelling NO DVT s/p left hip arthroplasty 10/23/24 Anemia PLAN: Cefazolin Ortho consult Lovenox [place] prn Monitor PT eval . 11/03/2024: Start physical therapy Continue cefazolin Orthopedic surgery saw the patient recommended to start ambulating and weight- bearing as tolerated [place] p.r.n. for the pain Lovenox for DVT prophylaxis 11/04/24: Continue current management Pain management as needed Physical therapy Ambulate as tolerated [place] for pain Cefazolin Hypokalemia: Replace Lovenox for DVT prophylaxis The rest of the management will depend on the hospital course 11/05/2024: Continue physical therapy Out of bed as tolerated Pain management as needed Lovenox for DVT prophylaxis Monitor closely 11/06/2024: Continue physical therapy and out of bed as tolerated Plan discussed with: Patient Date of Service: November 06, 2024 Billing Provider: CEASAR LOVETT MD Common Visit Codes: [id number] INP/OBS CARE(HIGH) CEASAR LOVETT MD November 06, 2024 11:44
[2024-11-06 13:00] VITALS: BP 122/76; PULSE 86; RESP 17; TEMP 98.1; O2SAT 96
[2024-11-06 21:00] VITALS: BP 150/81; PULSE 77; RESP 17; TEMP 98; O2SAT 93
[2024-11-07 00:21] VITALS: BP 136/77; PULSE 79; RESP 16; TEMP 98.5; O2SAT 96
[2024-11-07 05:00] VITALS: BP 132/81; PULSE 79; RESP 18; TEMP 97.6; O2SAT 94
[2024-11-07 08:00] VITALS: PULSE 72; RESP 18; O2SAT 97
[2024-11-07 09:00] VITALS: BP 132/68; PULSE 72; RESP 18; TEMP 97.5; O2SAT 97
[2024-11-07] MEDS ORDERED: HYDR-4902 PO (09:10)
[2024-11-07] MEDS ORDERED: GABA-339 PO (09:10)
[2024-11-07] MEDS ORDERED: CYCL-614 PO (09:10)
--- NOTE | 2024-11-07 09:14 | DVHDS2 ---
Discharge Summary Date of Admission November 01, 2024 at 17:15 Date of Discharge: November 07, 2024 Labs/Diagnostic Data: Laboratory Results Test 11/05/24 06:04 11/04/24 06:28 11/02/24 06:20 11/01/24 15:55 Sodium Level 136 mmol/L (136-145) Potassium Level 3.5 mmol/L (3.5-5.1) Chloride Level 100 mmol/L (98-107) Carbon Dioxide Level 26 mmol/L (20-31) Anion Gap 10 (5-15) Blood Urea Nitrogen 8 mg/dL (9-23) Creatinine 0.63 mg/dL (0.550-1.02) Glomerular Filtration Rate Calc 100 mL/min (>90) BUN/Creatinine Ratio 12.7 (10.0-20.0) Serum Glucose 102 mg/dL (74-106) Calcium Level 8.4 mg/dL (8.7-10.4) White Blood Count 7.7 10^3/uL (4.4-10.8) Red Blood Count 3.78 10^6/uL (4.0-5.20) Hemoglobin 10.4 g/dL (12.2-16.2) Hematocrit 31.4 % (36.0-46.0) Mean Corpuscular Volume 83.2 fL (80.0-100.0) Mean Corpuscular Hemoglobin 27.6 pg (28.0-32.0) Mean Corpuscular Hemoglobin Concent 33.2 g/dL (32.0-36.0) Red Cell Distribution Width 14.7 % (11.8-14.3) Platelet Count 693 10^3/uL (140-450) Mean Platelet Volume 6.9 fL (6.9-10.8) Neutrophils (%) (Auto) 64.6 % (37.0-80.0) Lymphocytes (%) (Auto) 20.3 % (10.0-50.0) Monocytes (%) (Auto) 12.7 % (0.0-12.0) Eosinophils (%) (Auto) 1.8 % (0.0-7.0) Basophils (%) (Auto) 0.6 % (0.0-2.0) Neutrophils # (Auto) 4.9 10 ^3/uL (1.6-8.6) Lymphocytes # (Auto) 1.6 10 ^3/uL (0.4-5.4) Monocytes # (Auto) 1.0 10 ^3/uL (0-1.3) Eosinophils # (Auto) 0.1 10 ^3/uL (0-0.8) Basophils # (Auto) 0 10 ^3/uL (0-0.2) Nucleated Red Blood Cells 0.1 % Magnesium Level 2.1 mg/dL (1.6-2.6) Total Bilirubin 0.3 mg/dL (0.2-1.0) Aspartate Amino Transferase (AST) 16 U/L (13-40) Alanine Aminotransferase (ALT) 14 U/L (7-40) Alkaline Phosphatase 161 U/L (46-116) Total Protein 5.9 g/dL (5.7-8.2) Albumin 3.3 g/dL (3.2-4.8) Erythrocyte Sedimentation Rate 84 mm/hr (0-20) Lactic Acid Level 1.0 mmol/L (0.4-2.0) C-Reactive Protein High Sensitivity 7.74 mg/dL (<1.0) B-Type Natriuretic Peptide 52.01 pg/mL (0-100) Other Laboratory Tests 11/05/24 06:04 11/04/24 06:28 Brief Hx & Hospital Course: Diagnoses: L hip pain, swelling, status post left hip arthroplasty No joint infection NO DVT s/p left hip arthroplasty 10/23/24 Anemia 64-year-old female who was admitted due to pain and swelling in her left hip She underwent hip surgery on 10/24/2024 and went to SNF however she left the SNF and went home after about 3 days because she did not like it there She came here the next day because of the pain and swelling She was evaluated and was ruled out for DVT She was seen again by Orthopedic surgery here and they recommended to continue medical management including ambulation and pain control and DVT prophylaxis Overall she did okay She did well with physical therapy and she ambulated with the assistance with a walker She is doing better now and therefore she will be discharged home with home health to continue [place] p.r.n. for the pain and follow up with Dr. Mello in 2 weeks as an outpatient She will be given [place] and Flexeril and gabapentin Home health will be ordered for physical therapy Condition at Discharge: Stable Final Diagnosis/Problems List L hip pain, swelling, status post left hip arthroplasty No joint infection NO DVT s/p left hip arthroplasty 10/23/24 Anemia Discharge Disposition: Home with Health Services SNF Discharge Will this Physician continue t: No Discharge Instruct/Medications Diet: Regular Activity: No Restrictions, As Tolerated Follow Up/Referral: Dr. Mello in 2 weeks Medications: [place] Gabapentin Flexeril Discharge Statement: "Patient was advised to return to the ER or call 911 if any headaches, dizziness, shortness of breath, chest pain, abdominal pain, bleeding, fevers, or worsening of medical condition. Patient was counseled about treatment plan, medications, possible side effects, patientverbalized understanding. All questions were answered to the best of my ability. This discharge took greater then 30 minutes in planning, reviewing documentation, counseling the patient, and discussing with other team members." ASSESSMENT ASSESSMENT Assessment L hip pain, swelling, status post left hip arthroplasty No joint infection NO DVT s/p left hip arthroplasty 10/23/24 Anemia Date of Service: November 07, 2024 Billing Provider: CEASAR LOVETT MD Common Visit Codes: [id number] DISCH DAY >30min CEASAR LOVETT MD November 07, 2024 09:14
[2024-11-07 12:53] VITALS: BP 114/70; PULSE 75; RESP 17; TEMP 97.4; O2SAT 95
== END 2024-11-07 13:45 | disposition home or self-care (01) | DRG 351 ==
LOC: ER 14:30 → OVERFLOW 17:15 → EAST 22:00
PROVIDERS: ADMIT Internal Medicine Geriatric Medicine; ATTEND Internal Medicine Geriatric Medicine
DX: M16.12 Unilateral primary osteoarthritis, left hip (principal); D64.9 Anemia, unspecified; D75.839 Thrombocytosis, unspecified; F10.90 Alcohol use, unspecified, uncomplicated; Z96.642 Presence of left artificial hip joint; Z79.899 Other long term (current) drug therapy; Y90.9 Presence of alcohol in blood, level not specified
CPT/HCPCS: 36415; 73502; 80048; 80053; 83605; 83735; 83880; 85025; 85652; 86141; 87081; 96365; 97110; 97116; 97163; 97530; G0378; J2405